=== PATIENT | female | born 1930 | race Caucasian/White ===

== ENCOUNTER 2017-08-03 16:19 | Outpatient (CLI) | payer MEDICARE, OTHER | END 2017-08-03 16:20 | disposition critical access hospital (66) | LOC: EMS 16:19 | PROVIDERS: ATTEND Surgery | DX: R51 Headache (principal); R42 Dizziness and giddiness; R11.10 Vomiting, unspecified | CPT/HCPCS: A0425; A0427 ==

== ENCOUNTER 2018-02-13 10:59 | Outpatient (CLI) | payer MEDICARE, OTHER ==
[2018-02-13 18:28] LABS: T4 (THYROXINE) 7.76 ug/dL (6.09-12.23)
[2018-02-13 18:30] LABS: ALBUMIN 4.2 g/dL (3.2-5.5); ALBUMIN/GLOBULIN RATIO 1.5 (1.0-2.2); BILIRUBIN,TOTAL 0.9 mg/dL (0.2-1.0); CALCIUM 9.1 mg/dL (8.5-10.3); CREATININE 0.7 mg/dL (0.4-1.0)
[2018-02-13 18:31] LABS: THYROID STIMULATING HORMONE 0.52 uIU/mL (0.34-5.60)
[2018-02-13 18:32] LABS: HB2 TOTAL 14.5 g/dL; HEMOGLOBIN A1C 0.46 g/dL; HEMOGLOBIN A1C % 5.1 % (4.6-6.2)
[2018-02-13 19:29] LABS: BASOPHILS % (AUTO) 0.4 %; EOSINOPHILS # (AUTO) 0.1 10^3/uL (0.0-0.7); EOSINOPHILS % (AUTO) 0.7 %; HGB - HEMOGLOBIN 12.8 g/dL (12.0-16.0); LYMPHOCYTES # (AUTO) 1.1 10^3/uL (1.5-3.5); LYMPHOCYTES % (AUTO) 13.6 %; MEAN CORPUSCULAR HGB CONC 32.1 g/dL (32.0-36.0); MEAN CORPUSCULAR VOLUME 93.4 fL (81.0-99.0); MONOCYTES % (AUTO) 12.9 %; NEUTROPHILS # (AUTO) 5.7 10^3/uL (1.5-6.6); NEUTROPHILS % (AUTO) 72.4 %; RED BLOOD COUNT 4.26 10^6/uL (4.20-5.40); RED CELL DISTRIBUTION WIDTH 19.7 % (12.0-15.0); WHITE BLOOD COUNT 7.8 x10^3/uL (4.8-10.8)
[2018-02-13 20:26] LABS: PLATELET ESTIMATE, MANUAL INCREASED (>450,000) (NORMAL); PLT - PLATELET COUNT 937 10^3/uL (130-450); RBC MORPHOLOGY (MULTIPLE) 1+ ANISOCYTOSIS (NORMAL)
== END 2018-02-13 11:00 | disposition home or self-care (01) ==
LOC: LAB.F 10:59
PROVIDERS: ATTEND Physician Assistant
DX: R79.89 Other specified abnormal findings of blood chemistry (principal); D69.6 Thrombocytopenia, unspecified; I10 Essential (primary) hypertension; Z13.1 Encounter for screening for diabetes mellitus
CPT/HCPCS: 36415; 80053; 83036; 84436; 84443; 85025

== ENCOUNTER 2018-04-11 14:49 | Outpatient (CLI) | payer MEDICARE, OTHER | END 2018-04-11 14:50 | disposition critical access hospital (66) | LOC: EMS 14:49 | PROVIDERS: ATTEND Surgery | DX: M25.552 Pain in left hip (principal); R20.0 Anesthesia of skin; W10.9XXA Fall (on) (from) unspecified stairs and steps, initial encounter; Y92.009 Unspecified place in unspecified non-institutional (private) residence as the place of occurrence of the external cause | CPT/HCPCS: A0425; A0429 ==

== ENCOUNTER 2018-04-11 15:25 | Inpatient (IN) | payer MEDICARE, OTHER ==
--- NOTE | 2018-04-11 15:48 | ED Physician Documentation ---
PD HPI LOWER EXT INJURY - Stated complaint Stated Complaint: GLF - Chief complaint Chief Complaint: Ext Problem - History obtained from History obtained from: Patient, Family - History of Present Illness PD HPI LOW EXT INJURY LOCATION: Left, Hip Type of injury: Fall (She twisted/tripped and fell to left side. [place] okay prior to that.) Where injury occurred: Home Timing - onset: Today (shortly [employer]) Timing - details: Abrupt onset, Still present (she fell and hurt left hip. Tried to get up and stand but was too painful.) Worsened by: Moving, Other (standing) Associated symptoms: No: Weakness, Numbness, Tingling Contributing factors: No: Anticoagulated Similar symptoms before: Has not had sx before Recently seen: Not recently seen Review of Systems Constitutional: denies: Fever, Chills Nose: denies: Rhinorrhea / runny nose, Congestion Throat: denies: Sore throat Cardiac: denies: Chest pain / pressure, Palpitations Respiratory: denies: Dyspnea, Cough GI: denies: Abdominal Pain, Nausea, Vomiting, Diarrhea, Bloody / black stool : denies: Dysuria, Frequency Skin: denies: Abrasion (s), Laceration (s) Neurologic: denies: Generalized weakness, Focal weakness, Numbness, Headache, Head injury PD PAST MEDICAL HISTORY - Past Medical History Past Medical History: Yes Cardiovascular: None Respiratory: None Neuro: Dementia Endocrine/Autoimmune: None Psych: Anxiety Musculoskeletal: Chronic back pain - Past Surgical History 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 - Present Medications Home Medications: Ambulatory Orders Medication Instructions Recorded Confirmed Sertraline [Zoloft] 50 mg ORAL DAILY 06/20/17 04/10/18 Calcium Citrate 1 tab PO DAILY 03/20/18 04/10/18 Ferrous Sulfate 1 tab PO DAILY 03/20/18 04/10/18 Ascorbic Acid [Vitamin C] 1,000 mg PO DAILY 04/10/18 04/10/18 Naproxen Sodium [Aleve] 1 tab PO DAILY 04/10/18 04/10/18 - Allergies Allergies/Adverse Reactions: Allergies Allergy/AdvReac Type Severity Reaction Status Date / Time No Known Drug Allergies Allergy Verified 02/18/14 18:41 - Living Situation Living Situation: reports: With family Living Arrangement: reports: At home - Social History Does the pt smoke?: No Smoking Status: Never smoker Does the pt drink ETOH?: Yes Does the pt have substance abuse?: No - Family History Family history: reports: Non contributory - Immunizations Immunizations are current?: Yes - POLST Patient has POLST: Yes PD ED PE NORMAL - Vitals Vital signs reviewed: Yes - General General: Alert and oriented X 3, No acute distress, Well developed/nourished - HEENT HEENT: Atraumatic, Pharynx benign - Neck Neck: Supple, no meningeal sign, No bony TTP, No adenopathy - Cardiac Cardiac: RRR, No murmur - Respiratory Respiratory: Clear bilaterally - Abdomen Abdomen: Soft, Non tender - Female Female : Deferred - Rectal Rectal: Deferred - Back Back: No CVA TTP, No spinal TTP - Derm Derm: Normal color, Warm and dry - Extremities Extremities: No deformity, No edema, No calf tenderness / cord, Other (left hip painful for rotational movement and impaction testing. Feels better with distraction. ) - Neuro Neuro: Alert and oriented X 3, No motor deficit, Normal speech Eye Opening: Spontaneous Motor: Obeys Commands Verbal: Oriented GCS Score: 15 - Psych Psych: Normal mood, Normal affect Results - Vitals Vitals: Vital Signs - 24 hr 04/11/18 15:30 Temperature 36.0 C L Heart Rate 85 Respiratory 16 Rate Blood Pressure 138/59 H O2 Saturation 100 Oxygen O2 Source Room air - Labs Labs: Laboratory Tests 04/11/18 04/11/18 16:40 16:40 WBC 11.3 H RBC 3.27 L Hgb 10.6 L Hct 32.0 L MCV 98.0 MCH 32.3 H MCHC 32.9 RDW 24.2 H Plt Count 166 MPV 7.8 L Neut # (Auto) Not Reportable Lymph # (Auto) Not Reportable [place] # (Auto) Not Reportable Eos # (Auto) Not Reportable Baso # (Auto) Not Reportable Absolute Nucleated RBC Not Reportable Total Counted 100 Band Neuts % (Manual) 3 Abnorm Lymph % (Manual) 0 Nucleated RBC % Not Reportable Neutrophils # (Manual) 9.7 H Lymphocytes # (Manual) 0.7 L Monocytes # (Manual) 0.9 Eosinophils # (Manual) 0.0 Basophils # (Manual) 0.0 Differential Comment MANUAL DIFFERENTIAL Manual Slide Review Indicated WBC Morphology NORMAL APPEARANCE Platelet Estimate NORMAL (130-450,000) Platelet Morphology NORMAL APPEARANCE RBC Morph Micro Appear 3+ ANISOCYTOSIS Sodium 138 Potassium 3.8 Chloride 102 Carbon Dioxide 27 Anion Gap 9.0 BUN 17 Creatinine 0.7 Estimated GFR (MDRD) 79 L Glucose 114 H Calcium 9.3 Total Bilirubin 0.8 AST 20 ALT 17 Alkaline Phosphatase 62 Total Protein 6.9 Albumin 4.1 Globulin 2.8 Albumin/Globulin Ratio 1.5 Lipase 49 - Rads (name of study) left hip Radiology: Prelim report reviewed, EMP read contemporaneously (Left intertrochanteric hip fracture with mild displacement and angulation.) PD MEDICAL DECISION MAKING - ED course Complexity details: reviewed results (Hip fracture. Her last meal was 9 AM this morning which is some little bits of fluid at noon. Evaluated the films and unfortunately he needed some hardware that was unavailable tonight and so was deferring surgery until the morning when they can get the appropriate appliance. Family is notified and updated on the course and plan of treatment.) , considered differential, d/w patient, d/w family, d/w datastage consultant (Dr. Barajas and also Dr. Wolfe) - Sepsis Event Vital Signs: Vital Signs - 24 hr 04/11/18 15:30 Temperature 36.0 C L Heart Rate 85 Respiratory 16 Rate Blood Pressure 138/59 H O2 Saturation 100 Oxygen O2 Source Room air Departure - Departure Disposition: 66 [facility] DC/Xfer Clinical Impression: Hip fracture Qualifiers: Encounter type: initial encounter Fracture type: closed Laterality: left Qualified Code(s): S72.002A - Fracture of unspecified part of neck of left femur , initial encounter for closed fracture Condition: Stable Record reviewed to determine appropriate education?: Yes Discharge Date/Time: 04/11/18 19:49
[2018-04-11 16:54] LABS: BASOPHILS % (AUTO) 0.3 %; HGB - HEMOGLOBIN 10.6 g/dL (12.0-16.0); LYMPHOCYTES % (AUTO) 4.5 %; MEAN CORPUSCULAR HEMOGLOBIN 32.3 pg (27.0-31.0); MEAN CORPUSCULAR HGB CONC 32.9 g/dL (32.0-36.0); MEAN PLATELET VOLUME 7.8 fL (7.9-10.8); MONOCYTES % (AUTO) 13.4 %; NEUTROPHILS % (AUTO) 81.8 %; PLT - PLATELET COUNT 166 10^3/uL (130-450); RED BLOOD COUNT 3.27 10^6/uL (4.20-5.40); RED CELL DISTRIBUTION WIDTH 24.2 % (12.0-15.0); WHITE BLOOD COUNT 11.3 x10^3/uL (4.8-10.8)
[2018-04-11 16:57] LABS: ABNORMAL LYMPHS % (MANUAL) 0 %
[2018-04-11 16:59] LABS: ALBUMIN 4.1 g/dL (3.2-5.5); ALBUMIN/GLOBULIN RATIO 1.5 (1.0-2.2); BILIRUBIN,TOTAL 0.8 mg/dL (0.2-1.0); CALCIUM 9.3 mg/dL (8.5-10.3); CREATININE 0.7 mg/dL (0.4-1.0); TOTAL PROTEIN 6.9 g/dL (6.7-8.2)
[2018-04-11 17:50] LABS: BAND NEUTROPHILS % (MANUAL) 3 %; LYMPHOCYTES # (MANUAL) 0.7 10^3/uL (1.5-3.5); LYMPHOCYTES % (MANUAL) 6 %; MONOCYTES # (MANUAL) 0.9 10^3/uL (0.0-1.0); NEUTROPHILS # (MANUAL) 9.7 10^3/uL (1.5-6.6); NEUTROPHILS % (MANUAL) 83 %; RBC MORPHOLOGY (MULTIPLE) 3+ ANISOCYTOSIS (NORMAL)
[2018-04-11 17:51] LABS: DIFFERENTIAL COMMENT MANUAL DIFFERENTIAL; PLATELET ESTIMATE, MANUAL NORMAL (130-450,000) (NORMAL); PLATELET MORPHOLOGY NORMAL APPEARANCE (NORMAL)
[2018-04-11] MEDS ORDERED: ACETAMINOPHEN 1,000 MG/100 ML 100 ML IV STA (18:20)
[2018-04-11] MEDS ORDERED: SODIUM CHLORIDE 0.9% 1,000 ML IV ONE (18:20)
[2018-04-11] MEDS ORDERED: ZOLPIDEM 5 MG TABLET PO PRN (18:31)
[2018-04-11] MEDS ORDERED: SODIUM CHLORIDE FLUSH 0.9% 10 ML SYRINGE IVP PRN (18:31)
[2018-04-11] MEDS ORDERED: ONDANSETRON 4 MG/2 ML VIAL IVP PRN (18:31)
[2018-04-11] MEDS ORDERED: ACETAMINOPHEN 325 MG TABLET PO PRN (18:31)
[2018-04-11] MEDS ORDERED: MORPHINE 2 MG/ML SYRINGE IVP PRN (18:31)
[2018-04-11] MEDS ORDERED: KETOROLAC 15 MG/ML VIAL IVP PRN (18:36)
--- NOTE | 2018-04-11 18:39 | HISTORY & PHYSICAL EXAMINATION ---
Chief Complaint - Chief Complaint Chief Complaint: left hip pain History of Present Illness - Admitted From Admitted From:: ER - History Obtained From History obtained from: pt and family - History of Present Illness HPI Comment/Other: is a 87-yrs-old female with a [facility] significance for anxiety, chronic back pain, who present ER complaint for left hip pain. Pt report she just missed a step when she walked at her home garage. Her left hip first hit the garage ground. Her witnessed the accident. She did not loss of consciousness when she had the fall. She immediately felt strong pain at her left hip. She could not move her left leg at all after this happened. pt denies chest pain, shortness of breath, abdominal pain, nausea, vomiting, headache, vision change, dysuria. She denies other injuries from this accidents. Xray reveals comminuted angulated complete left intertrochanteric fracture. Dr. Barajas was consulted at the time in ER. Lab test reveals pt had slight elevated WBC and mild anemia otherwise unremarkable. Pt is admitted for hip repair. 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 ), Father: Family History Comment/Other: pt is living with her in [facility]. Pt did not have her own children but had two adopted daughters. Living arrangement: At home Living Situation: With spouse/s.o. Social History Notes: pt denies cigarette smoking, alcohol and drug issue. - POLST Patient has POLST: Yes POLST Status: Full Code Meds/Allgy - Home Medications Home Medications: Ambulatory Orders Medication Instructions Recorded Confirmed Sertraline [Zoloft] 50 mg ORAL DAILY 06/20/17 04/10/18 Calcium Citrate 1 tab PO DAILY 03/20/18 04/10/18 Ferrous Sulfate 1 tab PO DAILY 03/20/18 04/10/18 Ascorbic Acid [Vitamin C] 1,000 mg PO DAILY 04/10/18 04/10/18 Naproxen Sodium [Aleve] 1 tab PO DAILY 04/10/18 04/10/18 - Allergies Allergies/Adverse Reactions: Allergies Allergy/AdvReac Type Severity Reaction Status Date / Time No Known Drug Allergies Allergy Verified 02/18/14 18:41 Review of Systems - Constitutional Constitutional: denies: Fatigue, Fever, Chills, Malaise, Weakness, Poor appetite , Diaphoresis, Night sweats - Eyes Eyes: denies: Pain, Irritation, Amaurosis, Blurred vision, Spots in vision, Field loss, Vision loss, Dipolpia - Ears, Nose & Throat Ears, Nose & Throat: denies: Ear pain, Hearing loss, Hearing aids, Tinnitus, Vertigo, Nasal pain, Nasal discharge, Nosebleeds, Nasal obstruction, Nasal congestion, Postnasal drainage, Sore throat, Mouth lesions, Bleeding gums - Cardiovascular Cariovascular: denies: Irregular heart rate, Palpitations, Chest pain, Edema, Lightheadedness, Syncope, Exertional dyspnea, Decr. exercise tolerance - Respiratory Respiratory: denies: Cough, Sputum production, Wheezing, Snoring, Hemoptysis, Orthopnea, SOB at rest, SOB with exertion - Gastrointestinal Gastrointestinal: denies: Abdominal pain, Abdominal distention, Constipation, Diarrhea, Change in bowel habits, Rectal bleeding, Black stools, Bloody stools, Nausea, Vomiting, Bile emesis, [place] blood emesis, Coffee grounds emesis, Reflux /heartburn - Genitourinary Genitourinary: denies: Dysuria, Frequency, Urgency, Hematuria, Incontinence, Flank pain, Nocturia - Musculoskeletal Musculoskeletal: reports: Joint pain (left hip pain, can not move left lower extremity), Other. denies: Muscle pain, Back pain, Muscle aches, Stiffness, Limited range of motion, Muscle weakness, Gout - Integumentary Integumentary: denies: Rash, Pruritis, Lesions, Dryness, Pigment changes - Neurological Neurological: denies: General weakness, Focal weakness, Headache, Dizziness, Numbness, Memory problems, Pre-existing deficit, Abnormal gait, Seizures, Incoordination, Slurred speech - Psychiatric Psychiatric: denies: Depression, Anxiety, Suicidal, Delusions, Hallucinations, Homicidal - Endocrine Endocrine: denies: Polyuria, Polydypsia, Polyphagia, Intolerance to cold, Intolerance to heat - Hematologic/Lymphatic Hematologic/Lymphatic: denies: Anemia, Bruising, Petechiae, Blood clots, Lymphadenopathy, Bleeding tendencies Exam - Vital Signs Reviewed Vital Signs: Yes Vital Signs: Vital Signs x48h Temp Pulse Resp BP Pulse Ox 04/11/18 15:30 36.0 C L 85 16 138/59 H 100 - Physical Exam General Appearance: positive: No acute distress, Alert. negative: Lethargic Eyes Bilateral: positive: Normal inspection, PERRL, No lid inflammation, Conjunctivae nml ENT: positive: ENT inspection nml, Pharynx nml, No signs of dehydration. negative: Purulent nasal drainage, Pharyngeal erythema, Oral lesions Neck: positive: Nml inspection, Thyroid nml, No JVD, Trachea midline. negative : Thyromegaly, Lymphadenopathy (R), Lymphadenopathy (L), Stiff neck, Carotid bruit, Swelling/bruising, Tracheal deviation Respiratory: positive: Chest non-tender, No respiratory distress, Breath sounds nml. negative: Wheezes, Rales, Rhonchi Cardiovascular: positive: Regular rate & rhythm, No murmur, No gallop. negative : Irregularly irregular, Extrasystoles, Tachycardia, Bradycardia, JVD present, Systolic murmur, Diastolic murmur Peripheral Pulses: positive: 2+ Abdomen: positive: Non-tender, No organomegaly, Nml bowel sounds, No distention. negative: Tenderness, Guarding, Rebound Back: positive: Nml inspection. negative: CVA tenderness (R), CVA tenderness (L ) Skin: positive: Color nml, No rash, Warm, Dry. negative: Cyanosis, Diaphoresis , Pallor Extremities: positive: Nml appearance. negative: Calf tenderness, Joint swelling, Gayatri's sign/cords Neurologic/Psychiatric: positive: Oriented x3, Sensation nml, Mood/affect nml. negative: Weakness, Sensory loss, Facial droop, Slurred/abnml speech, Depressed mood/affect Conclusion/Plan - Problem List (1) Hip fracture Conclusion/Plan: Xray reveal pt had lift hip fracture, pt is with pain. consult with orthopedics NPO mednight IVF pain control It seems very low risk 0.4% in revised cardiac risk index for operation Qualifiers: Encounter type: initial encounter Fracture type: closed Laterality: left Qualified Code(s): S72.002A - Fracture of unspecified part of neck of left femur, initial encounter for closed fracture (2) Anxiety Conclusion/Plan: stable, resume home Zoloft (3) Chronic back pain Conclusion/Plan: pain control, on Morphine and Toradol, PRN (4) DVT prophylaxis Conclusion/Plan: SCD and Lovenox (5) Full code status Conclusion/Plan: pt request full code - Lab Results Fish Bones: 04/12/18 05:15 04/12/18 05:15 Core Measures - Anticipated LOS I expect patient to be DC'd or transferred within 96 hours.: Yes - DVT/VTE - Prophylaxis VTE/DVT Device ordered at admit?: Yes VTE/DVT Prophylaxis med ordered at admit?: Yes
--- NOTE | 2018-04-11 18:53 | XRAY Report ---
Procedure Date: 04/11/2018 Accession Number: [id number] / [id number] Procedure: XR - Hip w/Pelvis 2-3V LT CPT Code: FULL RESULT: EXAM: LEFT HIP AND PELVIS RADIOGRAPHY EXAM DATE: 04/11/2018 05:01 PM. HISTORY: Pain COMPARISONS: None. TECHNIQUE: 1 view of the pelvis and one view of the left hip. FINDINGS: Bones: Comminuted angulated complete left intertrochanteric fracture. Joints: No dislocations Soft Tissues: Unremarkable IMPRESSION: Comminuted angulated complete left intertrochanteric fracture. RADIA
[2018-04-11] MEDS: SODIUM CHLORIDE 0.9% 1,000 ML IV SCH (20:25)
[2018-04-11 20:49] LABS: BILIRUBIN,URINE NEGATIVE (NEGATIVE); GLUCOSE, URINE (UA) NEGATIVE (NEGATIVE); KETONES,URINE (UA) 15 mg/dL (NEGATIVE); LEUKOCYTE ESTERASE, URINE NEGATIVE (NEGATIVE); NITRITE,URINE NEGATIVE (NEGATIVE); OCCULT BLOOD,URINE TRACE-INTA (NEGATIVE); PROTEIN,URINE NEGATIVE (NEGATIVE); UROBILINOGEN,URINE 0.2 (NORMAL) E.U./dL (NORMAL)
[2018-04-11 21:18] LABS: BACTERIA,URINE None Seen /HPF (None Seen); CLARITY,URINE CLEAR (CLEAR); MUCUS,URINE Moderate Strands; RBC,URINE 0-5 /HPF (0-5); SQUAMOUS EPITHELIAL CELL,UR NONE SEEN (<= Few)
[2018-04-12] MEDS: SODIUM CHLORIDE 0.9% 1,000 ML IV SCH ×2 (03:38→19:36)
[2018-04-12] MEDS: SODIUM CHLORIDE FLUSH 0.9% 10 ML SYRINGE IVP SCH ×3 (04:53→17:41)
[2018-04-12 05:59] LABS: BASOPHILS % (AUTO) 0.1 %; EOSINOPHILS % (AUTO) 0.1 %; HGB - HEMOGLOBIN 8.7 g/dL (12.0-16.0); LYMPHOCYTES # (AUTO) 0.9 10^3/uL (1.5-3.5); LYMPHOCYTES % (AUTO) 12.6 %; MEAN CORPUSCULAR HEMOGLOBIN 32.6 pg (27.0-31.0); MEAN CORPUSCULAR HGB CONC 33.3 g/dL (32.0-36.0); MONOCYTES # (AUTO) 1.7 10^3/uL (0.0-1.0); MONOCYTES % (AUTO) 25.4 %; NEUTROPHILS # (AUTO) 4.2 10^3/uL (1.5-6.6); NEUTROPHILS % (AUTO) 61.8 %; PLT - PLATELET COUNT 141 10^3/uL (130-450); RED BLOOD COUNT 2.66 10^6/uL (4.20-5.40); RED CELL DISTRIBUTION WIDTH 24.3 % (12.0-15.0); WHITE BLOOD COUNT 6.9 x10^3/uL (4.8-10.8)
[2018-04-12 06:03] LABS: ALBUMIN/GLOBULIN RATIO 1.3 (1.0-2.2); BILIRUBIN,TOTAL 0.7 mg/dL (0.2-1.0); CALCIUM 8.3 mg/dL (8.5-10.3); CREATININE 0.5 mg/dL (0.4-1.0); MAGNESIUM 1.9 mg/dL (1.7-2.8); TOTAL PROTEIN 5.3 g/dL (6.7-8.2)
[2018-04-12 06:25] LABS: PLATELET ESTIMATE, MANUAL NORMAL (130-450,000) (NORMAL)
[2018-04-12] MEDS: ENOXAPARIN 40 MG/0.4 ML SYRINGE SUBQ SCH (08:23)
[2018-04-12] MEDS: POLYETHYLENE GLYCOL 3350 17 GM PACKET PO SCH (08:23)
[2018-04-12] MEDS: FAMOTIDINE 20 MG TABLET PO SCH (08:29)
[2018-04-12 08:49] LABS: MEAN RETIC VALUE 123.7; RED BLOOD COUNT 2.63 10^6/uL (4.20-5.40)
[2018-04-12 09:08] LABS: INR 1.5 (0.8-1.2); PT - PROTHROMBIN TIME 16.5 secs (9.9-12.6)
[2018-04-12 09:13] LABS: % IRON SATURATION 22 % (20-50); IRON 41 ug/dL (28-170); TOTAL IRON BINDING CAPACITY 186 ug/dL (250-450); TRANSFERRIN 133 mg/dL (192-382)
[2018-04-12 09:19] LABS: FERRITIN 280.8 ng/mL (11.0-306.8)
--- NOTE | 2018-04-12 10:54 | PROVIDER PROGRESS NOTE ---
Subjective - Prog Note Date Prog Note Date: 04/12/18 Prog Note Time: 10:52 - Subjective Pt reports feeling: Worse (Patient STJamalH a GLF at home yesterday, injuring her left hip. XR in ER showed a left IT hip fracture. To OR this AM for surgical fixation of fracture. No other injury with fall.) Objective - Vital Signs/Intake & Output Vital Signs: Vital Signs x48h Temp Pulse Resp BP Pulse Ox 04/12/18 07:45 36.9 C 89 16 129/47 L 93 Intake & Output: Intake & Output 04/09/18 04/10/18 04/11/18 04/12/18 23:59 23:59 23:59 23:59 Intake Total 150 2000 Output Total 150 275 Balance 0 1725 - Lab Results Fish Bones: 04/12/18 05:15 04/12/18 05:15 Other Labs: Lab Results x24hrs 04/12/18 04/12/18 04/12/18 Range/Units 08:56 05:15 05:15 WBC (4.8-10.8) x10^3/uL RBC (4.20-5.40) 10^6/uL Hgb (12.0-16.0) g/dL Hct (37.0-47.0) % MCV (81.0-99.0) fL MCH (27.0-31.0) pg MCHC (32.0-36.0) g/dL RDW (12.0-15.0) % Plt Count (130-450) 10^3/uL MPV (7.9-10.8) fL Reticulocyte % (Auto) (0.5-2.3) % Neut # (Auto) (1.5-6.6) 10^3/uL Lymph # (Auto) (1.5-3.5) 10^3/uL Luce # (Auto) (0.0-1.0) 10^3/uL Eos # (Auto) (0.0-0.7) 10^3/uL Baso # (Auto) (0.0-0.1) 10^3/uL Absolute Nucleated RBC x10^3/uL Nucleated RBC % /100WBC Manual Slide Review Platelet Estimate (NORMAL) RBC Morph Micro Appear (NORMAL) Absolute Retic (0.020-0.110) 10^6/uL PT 16.5 H (9.9-12.6) secs INR 1.5 H (0.8-1.2) Sodium (135-145) mmol/L Potassium (3.5-5.0) mmol/L Chloride (101-111) mmol/L Carbon Dioxide (21-32) mmol/L Anion Gap (6-13) BUN (6-20) mg/dL Creatinine (0.4-1.0) mg/dL Estimated GFR (MDRD) (>89) Glucose (70-100) mg/dL Calcium (8.5-10.3) mg/dL Magnesium (1.7-2.8) mg/dL Iron (28-170) ug/dL TIBC (250-450) ug/dL % Saturation (20-50) % Transferrin (192-382) mg/dL Ferritin 280.8 (11.0-306.8) ng/mL Total Bilirubin (0.2-1.0) mg/dL AST (10-42) IU/L ALT (10-60) IU/L Alkaline Phosphatase (42-121) IU/L Lactate Dehydrogenase 189 (91-225) IU/L Total Protein (6.7-8.2) g/dL Albumin (3.2-5.5) g/dL Globulin (2.1-4.2) g/dL Albumin/Globulin Ratio (1.0-2.2) Vitamin B12 562 (180-914) pg/mL Urine Color Urine Clarity (CLEAR) Urine pH (5.0-7.5) PH Ur Specific [place] (1.002-1.030) Urine Protein (NEGATIVE) mg/dL Urine Glucose (UA) (NEGATIVE) mg/dL Urine Ketones (NEGATIVE) mg/dL Urine Occult Blood (NEGATIVE) Urine Nitrite (NEGATIVE) Urine Bilirubin (NEGATIVE) Urine Urobilinogen (NORMAL) E.U./dL Ur Leukocyte Esterase (NEGATIVE) Urine RBC (0-5) /HPF Urine WBC (0-5) /HPF Ur Squamous Epith Cells (<= Few) Urine Bacteria (None Seen) /HPF Urine Mucus Urine Culture Comments 04/12/18 04/12/18 04/12/18 Range/Units 05:15 05:15 05:15 WBC (4.8-10.8) x10^3/uL RBC 2.63 L (4.20-5.40) 10^6/uL Hgb (12.0-16.0) g/dL Hct (37.0-47.0) % MCV (81.0-99.0) fL MCH (27.0-31.0) pg MCHC (32.0-36.0) g/dL RDW (12.0-15.0) % Plt Count (130-450) 10^3/uL MPV (7.9-10.8) fL Reticulocyte % (Auto) 2.43 H (0.5-2.3) % Neut # (Auto) (1.5-6.6) 10^3/uL Lymph # (Auto) (1.5-3.5) 10^3/uL [place] # (Auto) (0.0-1.0) 10^3/uL Eos # (Auto) (0.0-0.7) 10^3/uL Baso # (Auto) (0.0-0.1) 10^3/uL Absolute Nucleated RBC x10^3/uL Nucleated RBC % /100WBC Manual Slide Review Platelet Estimate (NORMAL) RBC Morph Micro Appear (NORMAL) Absolute Retic 0.064 (0.020-0.110) 10^6/uL PT (9.9-12.6) secs INR (0.8-1.2) Sodium 140 (135-145) mmol/L Potassium 3.6 (3.5-5.0) mmol/L Chloride 109 (101-111) mmol/L Carbon Dioxide 25 (21-32) mmol/L Anion Gap 6.0 (6-13) BUN 15 (6-20) mg/dL Creatinine 0.5 (0.4-1.0) mg/dL Estimated GFR (MDRD) 117 (>89) Glucose 109 H (70-100) mg/dL Calcium 8.3 L (8.5-10.3) mg/dL Magnesium 1.9 (1.7-2.8) mg/dL Iron 41 (28-170) ug/dL TIBC 186 L (250-450) ug/dL % Saturation 22 (20-50) % Transferrin 133 L (192-382) mg/dL Ferritin (11.0-306.8) ng/mL Total Bilirubin 0.7 (0.2-1.0) mg/dL AST 19 (10-42) IU/L ALT 14 (10-60) IU/L Alkaline Phosphatase 51 (42-121) IU/L Lactate Dehydrogenase (91-225) IU/L Total Protein 5.3 L (6.7-8.2) g/dL Albumin 3.0 L (3.2-5.5) g/dL Globulin 2.3 (2.1-4.2) g/dL Albumin/Globulin Ratio 1.3 (1.0-2.2) Vitamin B12 (180-914) pg/mL Urine Color Urine Clarity (CLEAR) Urine pH (5.0-7.5) PH Ur Specific [place] (1.002-1.030) Urine Protein (NEGATIVE) mg/dL Urine Glucose (UA) (NEGATIVE) mg/dL Urine Ketones (NEGATIVE) mg/dL Urine Occult Blood (NEGATIVE) Urine Nitrite (NEGATIVE) Urine Bilirubin (NEGATIVE) Urine Urobilinogen (NORMAL) E.U./dL Ur Leukocyte Esterase (NEGATIVE) Urine RBC (0-5) /HPF Urine WBC (0-5) /HPF Ur Squamous Epith Cells (<= Few) Urine Bacteria (None Seen) /HPF Urine Mucus Urine Culture Comments 04/12/18 04/11/18 Range/Units 05:15 20:38 WBC 6.9 (4.8-10.8) x10^3/uL RBC 2.66 L (4.20-5.40) 10^6/uL Hgb 8.7 L (12.0-16.0) g/dL Hct 26.0 L (37.0-47.0) % MCV 98.0 (81.0-99.0) fL MCH 32.6 H (27.0-31.0) pg MCHC 33.3 (32.0-36.0) g/dL RDW 24.3 H (12.0-15.0) % Plt Count 141 (130-450) 10^3/uL MPV 8.0 (7.9-10.8) fL Reticulocyte % (Auto) (0.5-2.3) % Neut # (Auto) 4.2 (1.5-6.6) 10^3/uL Lymph # (Auto) 0.9 L (1.5-3.5) 10^3/uL [place]uce # (Auto) 1.7 H (0.0-1.0) 10^3/uL Eos # (Auto) 0.0 (0.0-0.7) 10^3/uL Baso # (Auto) 0.0 (0.0-0.1) 10^3/uL Absolute Nucleated RBC 0.00 x10^3/uL Nucleated RBC % 0.0 /100WBC Manual Slide Review Indicated Platelet Estimate NORMAL (130-450,000) (NORMAL) RBC Morph Micro Appear 1+ HYPOCHROMASIA (NORMAL) Absolute Retic (0.020-0.110) 10^6/uL PT (9.9-12.6) secs INR (0.8-1.2) Sodium (135-145) mmol/L Potassium (3.5-5.0) mmol/L Chloride (101-111) mmol/L Carbon Dioxide (21-32) mmol/L Anion Gap (6-13) BUN (6-20) mg/dL Creatinine (0.4-1.0) mg/dL Estimated GFR (MDRD) (>89) Glucose (70-100) mg/dL Calcium (8.5-10.3) mg/dL Magnesium (1.7-2.8) mg/dL Iron (28-170) ug/dL TIBC (250-450) ug/dL % Saturation (20-50) % Transferrin (192-382) mg/dL Ferritin (11.0-306.8) ng/mL Total Bilirubin (0.2-1.0) mg/dL AST (10-42) IU/L ALT (10-60) IU/L Alkaline Phosphatase (42-121) IU/L Lactate Dehydrogenase (91-225) IU/L Total Protein (6.7-8.2) g/dL Albumin (3.2-5.5) g/dL Globulin (2.1-4.2) g/dL Albumin/Globulin Ratio (1.0-2.2) Vitamin B12 (180-914) pg/mL Urine Color YELLOW Urine Clarity CLEAR (CLEAR) Urine pH 6.0 (5.0-7.5) PH Ur Specific [place] 1.020 (1.002-1.030) Urine Protein NEGATIVE (NEGATIVE) mg/dL Urine Glucose (UA) NEGATIVE (NEGATIVE) mg/dL Urine Ketones 15 H (NEGATIVE) mg/dL Urine Occult Blood TRACE-INTA (NEGATIVE) Urine Nitrite NEGATIVE (NEGATIVE) Urine Bilirubin NEGATIVE (NEGATIVE) Urine Urobilinogen 0.2 (NORMAL) (NORMAL) E.U./dL Ur Leukocyte Esterase NEGATIVE (NEGATIVE) Urine RBC 0-5 (0-5) /HPF Urine WBC 0-3 (0-5) /HPF Ur Squamous Epith Cells NONE SEEN (<= Few) Urine Bacteria None Seen (None Seen) /HPF Urine Mucus Moderate Strands Urine Culture Comments NOT INDICATED - Diagnostic Imaging Diagnostic Imaging Comments: XR show left IT hip fracture - Other Results/Comments Other Results/Comments: EXAM: Left hip: shortened and ext rotated. Painful hip motion. Moves toes well. Sensation intact. Good cap filling Assessment/Plan - Problem List (1) Hip fracture Impression: Closed left IT hip fracture PLAN: To OR this AM for short interTan nailing of fracture. Risk/benefit explained to patient and her family. They are in favor of surgery. Leg marked. Consent signed. Qualifiers: Encounter type: initial encounter Fracture type: closed Laterality: left Qualified Code(s): S72.002A - Fracture of unspecified part of neck of left femur, initial encounter for closed fracture
[2018-04-12] MEDS ORDERED: ceFAZolin 2 GM/50 ML 2 GM/50 ML BAG IV SCH (11:00)
--- NOTE | 2018-04-12 11:45 | CONSULTATION NOTE ---
DATE OF SERVICE: 04/12/2018 Physician: Logan Barajas MD REFERRING PHYSICIAN: Patrick Arango MD of the Emergency Department. CHIEF COMPLAINT: "My left hip hurts." HISTORY OF PRESENT ILLNESS: The patient is an 87-year-old woman who apparently had a misstep walking down steps to her basement yesterday, when she fell onto her left side. She noted immediate pain and deformity of her left hip, was unable to stand and bear due to pain. She was taken by ambulance to the Emergency Room here at [facility]. Evaluation in the Emergency Room revealed a left intertrochanteric hip fracture, left side. There were no associated other injuries such as loss of conscious, nausea, vomiting or distal weakness or numbness noted. No prior hip fracture. The patient apparently last had breakfast on the morning of her accident. Was admitted to the medical service for preoperative evaluation prior to her surgery. PHYSICAL EXAMINATION GENERAL: Showed an elderly woman in mild amount of distress, lying in her bed. EXTREMITIES: Left hip exam showed tenderness on the lateral aspect of her left hip. Painful left hip range of motion noted. The patient moves her toes well. No distal weakness or numbness noted in lower extremity. Good capillary filling of the digits noted. X-rays that were taken of the left hip show a left intertrochanteric hip fracture. ASSESSMENT: Closed left intertrochanteric hip fracture. PLAN: The patient has been cleared medically for surgical intervention. Discussed at length with the patient and her family, her diagnosis and treatment options. They have agreed to go ahead with surgical fixation of her fracture using a short Intertan nail, as described to them. The risks and benefits of surgery were explained, including anesthesia risks, infection, blood loss, nerve damage, malunion, nonunion, deep venous thrombosis, etc. They still wish to proceed with surgery later this morning. TD: 04/12/2018 10:57
[2018-04-12] MEDS ORDERED: LIDOCAINE-MPF 1% 30 ML VIAL ONE (13:24)
--- NOTE | 2018-04-12 13:55 | PROVIDER PROGRESS NOTE ---
Subjective - Prog Note Date Prog Note Date: 04/12/18 - Subjective Pt reports feeling: No change Subjective: pt still report pain when she move her leg. plan pt have hip repair today morning with orthopedics. Current Medications - Current Medications Current Medications: Active Medications Acetaminophen (Tylenol) 650 mg PO Q4HR PRN PRN Reason: Pain 1 to 4 Calcium Citrate () 250 mg PO DAILY [facility] Enoxaparin Sodium (Lovenox) 40 mg SUBQ DAILY [facility] Last Admin: 04/12/18 08:23 Dose: Not Given Famotidine (Pepcid) 20 mg PO DAILY [facility] Last Admin: 04/12/18 08:29 Dose: 20 mg Ferrous Sulfate (Feosol) 325 mg PO DAILYWM [facility] Sodium Chloride (Normal Saline 0.9%) 1,000 mls @ 100 mls/hr IV .Q10H [facility] Last Infusion: 04/12/18 13:38 Dose: Infused Cefazolin Sodium/Dextrose (Ancef 2 Gm/50 Ml) 2 gm in 50 mls @ 100 mls/hr IV ONCE [facility] Stop: 04/12/18 17:00 Ketorolac Tromethamine (Toradol Inj (15mg)) 15 mg IVP Q6HR PRN PRN Reason: PAIN Stop: 04/16/18 18:35 Morphine Sulfate (Morphine) 2 mg IVP Q2H PRN PRN Reason: Pain 8 to 10 Ondansetron HCl (Zofran Inj) 4 mg IVP Q6HR PRN PRN Reason: Nausea / Vomiting Polyethylene Glycol (Miralax) 17 gm PO DAILY [facility] Last Admin: 04/12/18 08:23 Dose: Not Given Sertraline HCl (Zoloft) 50 mg PO DAILY [facility] Sodium Chloride (Normal Saline Flush 0.9%) 10 ml IVP PRN PRN PRN Reason: NEEDED PER PROVIDER ORDERS Sodium Chloride (Normal Saline Flush 0.9%) 10 ml IVP 0100,0900,1700 [facility] Last Admin: 04/12/18 08:23 Dose: Not Given Zolpidem Tartrate (Ambien) 5 mg PO QPM PRN PRN Reason: Insomnia Last Admin: 04/12/18 00:35 Dose: 5 mg Sertraline [Zoloft] 50 mg ORAL DAILY 06/20/17 Calcium Citrate 1 tab PO DAILY 03/20/18 Ferrous Sulfate 1 tab PO DAILY 03/20/18 Ascorbic Acid [Vitamin C] 1,000 mg PO DAILY 04/10/18 Naproxen Sodium [Aleve] 1 tab PO DAILY 04/10/18 Objective - Vital Signs/Intake & Output Reviewed Vital Signs: Yes Vital Signs: Vital Signs x48h Temp Pulse Resp BP Pulse Ox 04/12/18 07:45 36.9 C 89 16 129/47 L 93 Intake & Output: Intake & Output 04/09/18 04/10/18 04/11/18 04/12/18 23:59 23:59 23:59 23:59 Intake Total 150 3000 Output Total 150 275 Balance 0 2725 - Objective General Appearance: positive: No acute distress, Alert. negative: Lethargic Eyes Bilateral: positive: Normal inspection, PERRL, No lid inflammation, Conjunctivae nml ENT: positive: ENT inspection nml, Pharynx nml, No signs of dehydration. negative: Purulent nasal drainage, Pharyngeal erythema, Oral lesions Neck: positive: Nml inspection, Thyroid nml, No JVD, Trachea midline. negative : Thyromegaly, Lymphadenopathy (R), Lymphadenopathy (L), Stiff neck, Swelling/ bruising, Tracheal deviation Respiratory: positive: Chest non-tender, No respiratory distress, Breath sounds nml. negative: Wheezes, Rales, Rhonchi Cardiovascular: positive: Regular rate & rhythm, No murmur, No gallop. negative : Irregularly irregular, Extrasystoles, Tachycardia, Bradycardia, JVD present, Systolic murmur, Diastolic murmur Peripheral Pulses: 2+ Radial (R), 2+ Radial (L), 2+ Dorsalis pedis (R), 2+ Dorsalis pedis (L) Abdomen: positive: Non-tender, No organomegaly, Nml bowel sounds, No distention. negative: Tenderness, Guarding, Rebound Back: positive: Nml inspection. negative: CVA tenderness (R), CVA tenderness (L ) Skin: positive: Color nml, No rash, Warm, Dry. negative: Cyanosis, Diaphoresis , Pallor Extremities: positive: Non-tender. negative: Calf tenderness, Joint swelling, Gayatri's sign/cords Neurologic/Psychiatric: positive: Oriented x3, Sensation nml, Mood/affect nml. negative: Weakness, Sensory loss, Facial droop, Slurred/abnml speech, Depressed mood/affect - Lab Results Fish Bones: 04/12/18 05:15 04/12/18 05:15 Other Labs: Lab Results x24hrs 04/12/18 04/12/18 04/12/18 Range/Units 08:56 05:15 05:15 WBC (4.8-10.8) x10^3/uL RBC (4.20-5.40) 10^6/uL Hgb (12.0-16.0) g/dL Hct (37.0-47.0) % MCV (81.0-99.0) fL MCH (27.0-31.0) pg MCHC (32.0-36.0) g/dL RDW (12.0-15.0) % Plt Count (130-450) 10^3/uL MPV (7.9-10.8) fL Reticulocyte % (Auto) (0.5-2.3) % Neut # (Auto) (1.5-6.6) 10^3/uL Lymph # (Auto) (1.5-3.5) 10^3/uL [place] # (Auto) (0.0-1.0) 10^3/uL Eos # (Auto) (0.0-0.7) 10^3/uL Baso # (Auto) (0.0-0.1) 10^3/uL Absolute Nucleated RBC x10^3/uL Nucleated RBC % /100WBC Manual Slide Review Platelet Estimate (NORMAL) RBC Morph Micro Appear (NORMAL) Absolute Retic (0.020-0.110) 10^6/uL PT 16.5 H (9.9-12.6) secs INR 1.5 H (0.8-1.2) Sodium (135-145) mmol/L Potassium (3.5-5.0) mmol/L Chloride (101-111) mmol/L Carbon Dioxide (21-32) mmol/L Anion Gap (6-13) BUN (6-20) mg/dL Creatinine (0.4-1.0) mg/dL Estimated GFR (MDRD) (>89) Glucose (70-100) mg/dL Calcium (8.5-10.3) mg/dL Magnesium (1.7-2.8) mg/dL Iron (28-170) ug/dL TIBC (250-450) ug/dL % Saturation (20-50) % Transferrin (192-382) mg/dL Ferritin 280.8 (11.0-306.8) ng/mL Total Bilirubin (0.2-1.0) mg/dL AST (10-42) IU/L ALT (10-60) IU/L Alkaline Phosphatase (42-121) IU/L Lactate Dehydrogenase 189 (91-225) IU/L Total Protein (6.7-8.2) g/dL Albumin (3.2-5.5) g/dL Globulin (2.1-4.2) g/dL Albumin/Globulin Ratio (1.0-2.2) Vitamin B12 562 (180-914) pg/mL Urine Color Urine Clarity (CLEAR) Urine pH (5.0-7.5) PH Ur Specific Lavina (1.002-1.030) Urine Protein (NEGATIVE) mg/dL Urine Glucose (UA) (NEGATIVE) mg/dL Urine Ketones (NEGATIVE) mg/dL Urine Occult Blood (NEGATIVE) Urine Nitrite (NEGATIVE) Urine Bilirubin (NEGATIVE) Urine Urobilinogen (NORMAL) E.U./dL Ur Leukocyte Esterase (NEGATIVE) Urine RBC (0-5) /HPF Urine WBC (0-5) /HPF Ur Squamous Epith Cells (<= Few) Urine Bacteria (None Seen) /HPF Urine Mucus Urine Culture Comments 04/12/18 04/12/18 04/12/18 Range/Units 05:15 05:15 05:15 WBC (4.8-10.8) x10^3/uL RBC 2.63 L (4.20-5.40) 10^6/uL Hgb (12.0-16.0) g/dL Hct (37.0-47.0) % MCV (81.0-99.0) fL MCH (27.0-31.0) pg MCHC (32.0-36.0) g/dL RDW (12.0-15.0) % Plt Count (130-450) 10^3/uL MPV (7.9-10.8) fL Reticulocyte % (Auto) 2.43 H (0.5-2.3) % Neut # (Auto) (1.5-6.6) 10^3/uL Lymph # (Auto) (1.5-3.5) 10^3/uL [place] # (Auto) (0.0-1.0) 10^3/uL Eos # (Auto) (0.0-0.7) 10^3/uL Baso # (Auto) (0.0-0.1) 10^3/uL Absolute Nucleated RBC x10^3/uL Nucleated RBC % /100WBC Manual Slide Review Platelet Estimate (NORMAL) RBC Morph Micro Appear (NORMAL) Absolute Retic 0.064 (0.020-0.110) 10^6/uL PT (9.9-12.6) secs INR (0.8-1.2) Sodium 140 (135-145) mmol/L Potassium 3.6 (3.5-5.0) mmol/L Chloride 109 (101-111) mmol/L Carbon Dioxide 25 (21-32) mmol/L Anion Gap 6.0 (6-13) BUN 15 (6-20) mg/dL Creatinine 0.5 (0.4-1.0) mg/dL Estimated GFR (MDRD) 117 (>89) Glucose 109 H (70-100) mg/dL Calcium 8.3 L (8.5-10.3) mg/dL Magnesium 1.9 (1.7-2.8) mg/dL Iron 41 (28-170) ug/dL TIBC 186 L (250-450) ug/dL % Saturation 22 (20-50) % Transferrin 133 L (192-382) mg/dL Ferritin (11.0-306.8) ng/mL Total Bilirubin 0.7 (0.2-1.0) mg/dL AST 19 (10-42) IU/L ALT 14 (10-60) IU/L Alkaline Phosphatase 51 (42-121) IU/L Lactate Dehydrogenase (91-225) IU/L Total Protein 5.3 L (6.7-8.2) g/dL Albumin 3.0 L (3.2-5.5) g/dL Globulin 2.3 (2.1-4.2) g/dL Albumin/Globulin Ratio 1.3 (1.0-2.2) Vitamin B12 (180-914) pg/mL Urine Color Urine Clarity (CLEAR) Urine pH (5.0-7.5) PH Ur Specific Lavina (1.002-1.030) Urine Protein (NEGATIVE) mg/dL Urine Glucose (UA) (NEGATIVE) mg/dL Urine Ketones (NEGATIVE) mg/dL Urine Occult Blood (NEGATIVE) Urine Nitrite (NEGATIVE) Urine Bilirubin (NEGATIVE) Urine Urobilinogen (NORMAL) E.U./dL Ur Leukocyte Esterase (NEGATIVE) Urine RBC (0-5) /HPF Urine WBC (0-5) /HPF Ur Squamous Epith Cells (<= Few) Urine Bacteria (None Seen) /HPF Urine Mucus Urine Culture Comments 04/12/18 04/11/18 Range/Units 05:15 20:38 WBC 6.9 (4.8-10.8) x10^3/uL RBC 2.66 L (4.20-5.40) 10^6/uL Hgb 8.7 L (12.0-16.0) g/dL Hct 26.0 L (37.0-47.0) % MCV 98.0 (81.0-99.0) fL MCH 32.6 H (27.0-31.0) pg MCHC 33.3 (32.0-36.0) g/dL RDW 24.3 H (12.0-15.0) % Plt Count 141 (130-450) 10^3/uL MPV 8.0 (7.9-10.8) fL Reticulocyte % (Auto) (0.5-2.3) % Neut # (Auto) 4.2 (1.5-6.6) 10^3/uL Lymph # (Auto) 0.9 L (1.5-3.5) 10^3/uL [place] # (Auto) 1.7 H (0.0-1.0) 10^3/uL Eos # (Auto) 0.0 (0.0-0.7) 10^3/uL Baso # (Auto) 0.0 (0.0-0.1) 10^3/uL Absolute Nucleated RBC 0.00 x10^3/uL Nucleated RBC % 0.0 /100WBC Manual Slide Review Indicated Platelet Estimate NORMAL (130-450,000) (NORMAL) RBC Morph Micro Appear 1+ HYPOCHROMASIA (NORMAL) Absolute Retic (0.020-0.110) 10^6/uL PT (9.9-12.6) secs INR (0.8-1.2) Sodium (135-145) mmol/L Potassium (3.5-5.0) mmol/L Chloride (101-111) mmol/L Carbon Dioxide (21-32) mmol/L Anion Gap (6-13) BUN (6-20) mg/dL Creatinine (0.4-1.0) mg/dL Estimated GFR (MDRD) (>89) Glucose (70-100) mg/dL Calcium (8.5-10.3) mg/dL Magnesium (1.7-2.8) mg/dL Iron (28-170) ug/dL TIBC (250-450) ug/dL % Saturation (20-50) % Transferrin (192-382) mg/dL Ferritin (11.0-306.8) ng/mL Total Bilirubin (0.2-1.0) mg/dL AST (10-42) IU/L ALT (10-60) IU/L Alkaline Phosphatase (42-121) IU/L Lactate Dehydrogenase (91-225) IU/L Total Protein (6.7-8.2) g/dL Albumin (3.2-5.5) g/dL Globulin (2.1-4.2) g/dL Albumin/Globulin Ratio (1.0-2.2) Vitamin B12 (180-914) pg/mL Urine Color YELLOW Urine Clarity CLEAR (CLEAR) Urine pH 6.0 (5.0-7.5) PH Ur Specific Lavina 1.020 (1.002-1.030) Urine Protein NEGATIVE (NEGATIVE) mg/dL Urine Glucose (UA) NEGATIVE (NEGATIVE) mg/dL Urine Ketones 15 H (NEGATIVE) mg/dL Urine Occult Blood TRACE-INTA (NEGATIVE) Urine Nitrite NEGATIVE (NEGATIVE) Urine Bilirubin NEGATIVE (NEGATIVE) Urine Urobilinogen 0.2 (NORMAL) (NORMAL) E.U./dL Ur Leukocyte Esterase NEGATIVE (NEGATIVE) Urine RBC 0-5 (0-5) /HPF Urine WBC 0-3 (0-5) /HPF Ur Squamous Epith Cells NONE SEEN (<= Few) Urine Bacteria None Seen (None Seen) /HPF Urine Mucus Moderate Strands Urine Culture Comments NOT INDICATED ABX Reporting Has patient been on IV antibiotics over the past 48 hours?: No Assessment/Plan - Problem List (1) Hip fracture Impression: Conclusion/Plan: plan to have hip repair today morning, will follow up pain control Xray reveal pt had lift hip fracture, pt is with pain. consult with orthopedics NPO mednight IVF pain control It seems very low risk 0.4% in revised cardiac risk index for operation (2) Anxiety Conclusion/Plan: stable, stable, resume home Zoloft (3) Chronic back pain Conclusion/Plan: continue pain control pain control, on Morphine and Toradol, PRN Qualifiers: Encounter type: initial encounter Fracture type: closed Laterality: left Qualified Code(s): S72.002A - Fracture of unspecified part of neck of left femur, initial encounter for closed fracture
[2018-04-12] MEDS ORDERED: DEXAMETHASONE 4 MG/ML VIAL IVP ONE (14:00)
[2018-04-12] MEDS ORDERED: LIDOCAINE-MPF 2% 5 ML VIAL IM ONE (14:00)
[2018-04-12] MEDS ORDERED: fentaNYL 100 MCG/2 ML VIAL IVP ONE (14:00)
[2018-04-12] MEDS ORDERED: MIDAZOLAM 2 MG/2 ML VIAL IVP ONE (14:00)
[2018-04-12] MEDS ORDERED: PROPOFOL 200 MG/20 ML VIAL IVP ONE (14:00)
[2018-04-12] MEDS ORDERED: ONDANSETRON 4 MG/2 ML VIAL IVP ONE (14:00)
[2018-04-12] MEDS ORDERED: BUPIVACAINE 0.25% PF 30 ML VIAL SUBQ ONE ×2 (14:07)
[2018-04-12] MEDS ORDERED: LACTATED RINGERS 1,000 ML IV ONE (14:08)
[2018-04-12] MEDS ORDERED: BUPIVACAINE 0.25% PF 30 ML VIAL ONE (14:24)
[2018-04-12] MEDS ORDERED: PROCHLORPERAZINE 10 MG/2 ML VIAL IVP PRN (14:53)
[2018-04-12] MEDS ORDERED: SENNA 8.6 MG TABLET PO PRN (14:53)
[2018-04-12] MEDS ORDERED: ACETAMINOPHEN 1,000 MG/100 ML 100 ML IV PRN (14:53)
[2018-04-12] MEDS ORDERED: ONDANSETRON 4 MG/2 ML VIAL IVP PRN (14:53)
[2018-04-12] MEDS ORDERED: DOCUSATE SODIUM 100 MG CAPSULE PO PRN (14:53)
[2018-04-12] MEDS ORDERED: SODIUM CHLORIDE FLUSH 0.9% 10 ML SYRINGE IVP PRN (14:53)
--- NOTE | 2018-04-12 14:53 | OPERATIVE REPORT ---
Operative Report - General Admit Date: 04/11/18 Procedure Date: 04/12/18 Planned Procedure: Short interTan nailing of left hip fracture Pre-Op Diagnosis: Closed left IT hip fracture Procedure Performed: Closed reduction and short interTan nailing of left hip fracture Post Op Diagnosis: Same - Procedure Note Primary Surgeon: Suresh Barajas Anesthesia Provider: Pete Rodriguez CRNA Anesthesia Technique: General ET tube IV Fluids (mL): 700 Estimated Blood Loss (mL): 50 Urine Output (mL): 300 Complications: None
--- NOTE | 2018-04-12 15:32 | XRAY Report ---
Procedure Date: 04/12/2018 Accession Number: [id number] / [id number] Procedure: [place] - OR C-Arm Procedure CPT Code: FULL RESULT: EXAM: FLUOROSCOPIC GUIDANCE EXAM DATE: 04/12/2018 02:51 PM. CLINICAL HISTORY: LEFT HIP SHORT INTERCAN NAIL. COMPARISON: None. FINDINGS: No images submitted. IMPRESSION: Fluoroscopic guidance provided for left hip short intercan nail. Total fluoroscopy time: 30 seconds. Number of images: 0. RADIA
--- NOTE | 2018-04-12 15:34 | XRAY Report ---
Procedure Date: 04/12/2018 Accession Number: [id number] / [id number] Procedure: XR - Hip w/Pelvis 2-3V LT CPT Code: FULL RESULT: EXAM: LEFT HIP AND PELVIS RADIOGRAPHY, FLUOROSCOPIC VIEWS EXAM DATE: 04/12/2018 02:53 PM. HISTORY: Pelvis and left hip radiograph 04/11/2018. COMPARISONS: None. TECHNIQUE: 4 fluoroscopic spot views.. FINDINGS: 4 fluoroscopic spot views demonstrate interval left hip internal fixation with femoral head/neck compression pin and femoral intramedullary otto. Near-anatomic alignment demonstrated. IMPRESSION: Left hip ORIF. RADIA
[2018-04-12] MEDS ORDERED: SODIUM CHLORIDE FLUSH 0.9% 10 ML SYRINGE IVP SCH (17:00)
[2018-04-12] MEDS: oxyCOD/ACETAMIN 5 MG/325 MG TABLET PO PRN (17:40)
[2018-04-12] MEDS: SERTRALINE 50 MG TABLET PO SCH (17:40)
--- NOTE | 2018-04-12 18:54 | OPERATIVE REPORT ---
DATE OF SERVICE: 04/12/2018 Physician: Logan Barajas MD DATE OF PROCEDURE: 04/12/2018 PREOPERATIVE DIAGNOSIS: Closed left intertrochanteric hip fracture. POSTOPERATIVE DIAGNOSIS: Closed left intertrochanteric hip fracture. PROCEDURE PERFORMED: Closed reduction and short Intertan nailing of left hip fracture. SURGEON: Logan Barajas MD ANESTHESIA: General. DESCRIPTION OF PROCEDURE: The patient was taken to the operating room on the afternoon of 04/12/2018, where she was placed under general anesthetic without any complications. She was then positioned supine on the fracture table. The right unfractured extremity was flexed and abducted at the hip and held in a well-leg pham. The fractured left lower extremity was then placed into axial traction with the leg internally rotated about 30 degrees. Fluoroscopic views, in AP and lateral projection, showed a good reduction of our fracture. We then prepped and draped the lateral aspect of her hip in the usual fashion for our procedure. We made an oblique skin incision just proximal to the tip of the greater trochanter. We dissected down to the tip of the greater trochanter. This was where we placed the threaded tip of our guidewire. Its position was confirmed with fluoroscopy. We then advanced, with power, the threaded-tip guidewire through the greater trochanter and into the proximal femoral shaft, just past the level of the lesser trochanter. This was felt to be in adequate position in both AP and lateral projections used with our C-arm fluoroscopy. Next, we then applied the channel reamer and reamed the proximal femur over our inserted guidewire, down to the level of the lesser trochanter. We then removed the reamer and the guide pin. We selected an Intertan nail that was 10 mm x 18 cm x 125 degree angle. This was then placed onto our insertion guide and held in place with our set screw. We then proceeded to insert our nail through the prepared proximal femur down to the proper level. Once this was in location, we then placed the oval sleeve guide into the distal end of our insertion apparatus. This was advanced through the small skin incision down to the lateral femoral cortex. We inserted the drill sleeve into our guide. Next, the threaded-tip guidewire was then placed under power through the proximal femur and up into the femoral neck and head. Fluoroscopic view, in AP and lateral projection, showed a good placement of our guide pin. The tip of the guidewire was within about 2 or 3 mm of subchondral bone, both in AP and lateral projections. Direct measuring guide was used and we determined we would use a 105 mm length, subtrochanteric, hip lag screw. We then proceeded to remove our drill sleeve out of our guide and reamed the proximal femur with the cannulated reamer to within a few millimeters of the subchondral bone. The selected subtrochanteric hip lag screw (11 mm x 105 mm) was then placed onto our screwdriver and this was then inserted over our guide pin. This went through the proximal end of our nail and up into the femoral neck and femoral head to within a few millimeters of the subchondral bone. Fluoroscopic view, in AP and lateral projections, showed good position and depth of penetration in both AP and lateral projections. Next, we released the tension on the leg and proceeded to compress the fracture using the compression knob that was part of our insertion apparatus. Fluoroscopic views showed good impaction of our fracture. At this point, we then removed the screw insertion apparatus, after we had locked the lag screw onto the nail with the set screw that was part of the nail. This was done with the hinged screwdriver and through the proximal end of our nail. After we got a snug interface with the set screw, we then backed it off by 90 degrees, per the directions in our manual. Again, the hip lag screw apparatus was removed from the nail. Next, we then made a small skin incision down at the distal end of our insertion apparatus. We then inserted a concentric silver and gold drill sleeve through the distal end of our insertion apparatus through the small skin incision. We then drilled the lateral and medial femoral shaft cortex in line with our drill sleeve. Fluoroscopic views showed the screw to be at a proper penetration through both cortices. The measurement off of our drill sleeve indicated we would use a 32.5 mm length distal locking screw. The selected screw was then inserted with our screw insertion apparatus. We then inserted the screw through our gold sleeve, after the silver insert and central sleeve had been removed. We inserted the screw until we got good bicortical purchase. Fluoroscopic views showed the screw to be adequately inserted in both AP and lateral projections. We then got final x-rays of the hip, again showing good reduction of our fracture and satisfactory placement of hardware. These images were then sent to Radiology. We then removed the insertion apparatus with a ball-tip screwdriver, irrigated the wounds thoroughly with saline, then closed the wound in layers using 0 Vicryl to close the fascia anabel layer proximally. Buried 2-0 Vicryl was used to approximate the subcutaneous tissue and the proximal 2 incisions. Finally, skin marcos were used to approximate the skin edges of all the wounds. We injected 20 mL of 0.25% Marcaine to provide local incisional anesthesia in all 3 incisions. After dressing the wounds, we then transferred the patient off the fracture table onto her bed, and she was taken to the recovery room in satisfactory condition. ESTIMATED BLOOD LOSS: 50 mL REPLACEMENT: 700 mL INTRAOPERATIVE COMPLICATIONS: None. PLAN: The patient will be advanced in physical therapy with weightbearing as tolerated on the left lower extremity with physical therapy assistance. This will be started on the first postoperative date. TD: 04/12/2018 15:19
[2018-04-12] MEDS: MORPHINE 2 MG/ML SYRINGE IVP PRN (19:37)
[2018-04-12 19:51] LABS: HGB - HEMOGLOBIN 8.3 g/dL (12.0-16.0)
[2018-04-12] MEDS: ceFAZolin 2 GM/50 ML 2 GM/50 ML BAG IV SCH (21:24)
[2018-04-13] MEDS: SODIUM CHLORIDE FLUSH 0.9% 10 ML SYRINGE IVP SCH ×3 (05:53→17:04)
[2018-04-13] MEDS: SODIUM CHLORIDE 0.9% 1,000 ML IV SCH (05:54)
[2018-04-13] MEDS: ceFAZolin 2 GM/50 ML 2 GM/50 ML BAG IV SCH (05:56)
[2018-04-13] MEDS: oxyCOD/ACETAMIN 5 MG/325 MG TABLET PO PRN ×2 (06:16→13:24)
[2018-04-13 06:21] LABS: ALBUMIN 2.8 g/dL (3.2-5.5); ALBUMIN/GLOBULIN RATIO 1.3 (1.0-2.2); BASOPHILS % (AUTO) 0.1 %; BILIRUBIN,TOTAL 0.7 mg/dL (0.2-1.0); CREATININE 0.4 mg/dL (0.4-1.0); HGB - HEMOGLOBIN 7.4 g/dL (12.0-16.0); LYMPHOCYTES % (AUTO) 8.6 %; MEAN CORPUSCULAR HEMOGLOBIN 32.1 pg (27.0-31.0); MEAN CORPUSCULAR HGB CONC 32.4 g/dL (32.0-36.0); MEAN CORPUSCULAR VOLUME 99.1 fL (81.0-99.0); MEAN PLATELET VOLUME 7.7 fL (7.9-10.8); MONOCYTES % (AUTO) 23.6 %; NEUTROPHILS % (AUTO) 67.7 %; PLT - PLATELET COUNT 164 10^3/uL (130-450); RED BLOOD COUNT 2.31 10^6/uL (4.20-5.40); RED CELL DISTRIBUTION WIDTH 23.7 % (12.0-15.0); WHITE BLOOD COUNT 9.6 x10^3/uL (4.8-10.8)
[2018-04-13 06:30] LABS: ABNORMAL LYMPHS % (MANUAL) 0 %
[2018-04-13 06:53] LABS: BAND NEUTROPHILS % (MANUAL) 2 %; LYMPHOCYTES # (MANUAL) 1.8 10^3/uL (1.5-3.5); LYMPHOCYTES % (MANUAL) 19 %; MONOCYTES # (MANUAL) 1.2 10^3/uL (0.0-1.0); NEUTROPHILS # (MANUAL) 6.6 10^3/uL (1.5-6.6); NEUTROPHILS % (MANUAL) 67 %
[2018-04-13 06:54] LABS: DIFFERENTIAL COMMENT MANUAL DIFFERENTIAL; PLATELET ESTIMATE, MANUAL NORMAL (130-450,000) (NORMAL)
--- NOTE | 2018-04-13 08:05 | PROVIDER PROGRESS NOTE ---
Subjective - Prog Note Date Prog Note Date: 04/13/18 Prog Note Time: 08:03 - Subjective Pt reports feeling: Improved (Less hip pain. No SOB or dizziness in bed) Objective - Vital Signs/Intake & Output Vital Signs: Vital Signs x48h Temp Pulse Resp BP Pulse Ox 04/13/18 04:48 36.6 C 85 18 124/36 L 95 Intake & Output: Intake & Output 04/10/18 04/11/18 04/12/18 04/13/18 23:59 23:59 23:59 23:59 Intake Total 150 3430 853.333 Output Total 150 450 375 Balance 0 2980 478.333 - Lab Results Fish Bones: 04/13/18 05:50 04/13/18 05:50 Other Labs: Lab Results x24hrs 04/13/18 04/13/18 04/13/18 Range/Units 07:31 05:50 05:50 WBC (4.8-10.8) x10^3/uL RBC (4.20-5.40) 10^6/uL Hgb (12.0-16.0) g/dL Hct (37.0-47.0) % MCV (81.0-99.0) fL MCH (27.0-31.0) pg MCHC (32.0-36.0) g/dL RDW (12.0-15.0) % Plt Count (130-450) 10^3/uL MPV (7.9-10.8) fL Reticulocyte % (Auto) (0.5-2.3) % Neut # (Auto) Lymph # (Auto) [place] # (Auto) Eos # (Auto) Baso # (Auto) Absolute Nucleated RBC Total Counted Band Neuts % (Manual) (0 - 10) % Abnorm Lymph % (Manual) % Nucleated RBC % Neutrophils # (Manual) (1.5-6.6) 10^3/uL Lymphocytes # (Manual) (1.5-3.5) 10^3/uL Monocytes # (Manual) (0.0-1.0) 10^3/uL Eosinophils # (Manual) (0-0.7) 10^3/uL Basophils # (Manual) (0-0.1) 10^3/uL Differential Comment Platelet Estimate (NORMAL) RBC Morph Micro Appear (NORMAL) Absolute Retic (0.020-0.110) 10^6/uL PT (9.9-12.6) secs INR (0.8-1.2) Sodium 140 (135-145) mmol/L Potassium 3.8 (3.5-5.0) mmol/L Chloride 110 (101-111) mmol/L Carbon Dioxide 26 (21-32) mmol/L Anion Gap 4.0 L (6-13) BUN 12 (6-20) mg/dL Creatinine 0.4 (0.4-1.0) mg/dL Estimated GFR (MDRD) 151 (>89) Glucose 105 H (70-100) mg/dL Calcium 8.0 L (8.5-10.3) mg/dL Iron (28-170) ug/dL TIBC (250-450) ug/dL % Saturation (20-50) % Transferrin (192-382) mg/dL Ferritin (11.0-306.8) ng/mL Total Bilirubin 0.7 (0.2-1.0) mg/dL AST 20 (10-42) IU/L ALT 13 (10-60) IU/L Alkaline Phosphatase 45 (42-121) IU/L Lactate Dehydrogenase (91-225) IU/L Total Protein 5.0 L (6.7-8.2) g/dL Albumin 2.8 L (3.2-5.5) g/dL Globulin 2.2 (2.1-4.2) g/dL Albumin/Globulin Ratio 1.3 (1.0-2.2) Vitamin B12 (180-914) pg/mL Blood Type A POSITIVE Blood Type Recheck A POSITIVE Antibody Screen NEGATIVE Crossmatch IS Only See Detail 04/13/18 04/12/18 04/12/18 Range/Units 05:50 19:43 08:56 WBC 9.6 (4.8-10.8) x10^3/uL RBC 2.31 L (4.20-5.40) 10^6/uL Hgb 7.4 L 8.3 L (12.0-16.0) g/dL Hct 22.9 L 25.5 L (37.0-47.0) % MCV 99.1 H (81.0-99.0) fL MCH 32.1 H (27.0-31.0) pg MCHC 32.4 (32.0-36.0) g/dL RDW 23.7 H (12.0-15.0) % Plt Count 164 (130-450) 10^3/uL MPV 7.7 L (7.9-10.8) fL Reticulocyte % (Auto) (0.5-2.3) % Neut # (Auto) Not Reportable Lymph # (Auto) Not Reportable [place] # (Auto) Not Reportable Eos # (Auto) Not Reportable Baso # (Auto) Not Reportable Absolute Nucleated RBC Not Reportable Total Counted 100 Band Neuts % (Manual) 2 (0 - 10) % Abnorm Lymph % (Manual) 0 % Nucleated RBC % Not Reportable Neutrophils # (Manual) 6.6 (1.5-6.6) 10^3/uL Lymphocytes # (Manual) 1.8 (1.5-3.5) 10^3/uL Monocytes # (Manual) 1.2 H (0.0-1.0) 10^3/uL Eosinophils # (Manual) 0.0 (0-0.7) 10^3/uL Basophils # (Manual) 0.0 (0-0.1) 10^3/uL Differential Comment MANUAL DIFFERENTIAL Platelet Estimate NORMAL (130-450,000) (NORMAL) RBC Morph Micro Appear 1+ OVALOCYTES (NORMAL) Absolute Retic (0.020-0.110) 10^6/uL PT 16.5 H (9.9-12.6) secs INR 1.5 H (0.8-1.2) Sodium (135-145) mmol/L Potassium (3.5-5.0) mmol/L Chloride (101-111) mmol/L Carbon Dioxide (21-32) mmol/L Anion Gap (6-13) BUN (6-20) mg/dL Creatinine (0.4-1.0) mg/dL Estimated GFR (MDRD) (>89) Glucose (70-100) mg/dL Calcium (8.5-10.3) mg/dL Iron (28-170) ug/dL TIBC (250-450) ug/dL % Saturation (20-50) % Transferrin (192-382) mg/dL Ferritin (11.0-306.8) ng/mL Total Bilirubin (0.2-1.0) mg/dL AST (10-42) IU/L ALT (10-60) IU/L Alkaline Phosphatase (42-121) IU/L Lactate Dehydrogenase (91-225) IU/L Total Protein (6.7-8.2) g/dL Albumin (3.2-5.5) g/dL Globulin (2.1-4.2) g/dL Albumin/Globulin Ratio (1.0-2.2) Vitamin B12 (180-914) pg/mL Blood Type Blood Type Recheck Antibody Screen Crossmatch IS Only 04/12/18 04/12/18 04/12/18 Range/Units 05:15 05:15 05:15 WBC (4.8-10.8) x10^3/uL RBC (4.20-5.40) 10^6/uL Hgb (12.0-16.0) g/dL Hct (37.0-47.0) % MCV (81.0-99.0) fL MCH (27.0-31.0) pg MCHC (32.0-36.0) g/dL RDW (12.0-15.0) % Plt Count (130-450) 10^3/uL MPV (7.9-10.8) fL Reticulocyte % (Auto) (0.5-2.3) % Neut # (Auto) Lymph # (Auto) [place] # (Auto) Eos # (Auto) Baso # (Auto) Absolute Nucleated RBC Total Counted Band Neuts % (Manual) (0 - 10) % Abnorm Lymph % (Manual) % Nucleated RBC % Neutrophils # (Manual) (1.5-6.6) 10^3/uL Lymphocytes # (Manual) (1.5-3.5) 10^3/uL Monocytes # (Manual) (0.0-1.0) 10^3/uL Eosinophils # (Manual) (0-0.7) 10^3/uL Basophils # (Manual) (0-0.1) 10^3/uL Differential Comment Platelet Estimate (NORMAL) RBC Morph Micro Appear (NORMAL) Absolute Retic (0.020-0.110) 10^6/uL PT (9.9-12.6) secs INR (0.8-1.2) Sodium (135-145) mmol/L Potassium (3.5-5.0) mmol/L Chloride (101-111) mmol/L Carbon Dioxide (21-32) mmol/L Anion Gap (6-13) BUN (6-20) mg/dL Creatinine (0.4-1.0) mg/dL Estimated GFR (MDRD) (>89) Glucose (70-100) mg/dL Calcium (8.5-10.3) mg/dL Iron 41 (28-170) ug/dL TIBC 186 L (250-450) ug/dL % Saturation 22 (20-50) % Transferrin 133 L (192-382) mg/dL Ferritin 280.8 (11.0-306.8) ng/mL Total Bilirubin (0.2-1.0) mg/dL AST (10-42) IU/L ALT (10-60) IU/L Alkaline Phosphatase (42-121) IU/L Lactate Dehydrogenase 189 (91-225) IU/L Total Protein (6.7-8.2) g/dL Albumin (3.2-5.5) g/dL Globulin (2.1-4.2) g/dL Albumin/Globulin Ratio (1.0-2.2) Vitamin B12 562 (180-914) pg/mL Blood Type Blood Type Recheck Antibody Screen Crossmatch IS Only 04/12/18 Range/Units 05:15 WBC (4.8-10.8) x10^3/uL RBC 2.63 L (4.20-5.40) 10^6/uL Hgb (12.0-16.0) g/dL Hct (37.0-47.0) % MCV (81.0-99.0) fL MCH (27.0-31.0) pg MCHC (32.0-36.0) g/dL RDW (12.0-15.0) % Plt Count (130-450) 10^3/uL MPV (7.9-10.8) fL Reticulocyte % (Auto) 2.43 H (0.5-2.3) % Neut # (Auto) Lymph # (Auto) [place] # (Auto) Eos # (Auto) Baso # (Auto) Absolute Nucleated RBC Total Counted Band Neuts % (Manual) (0 - 10) % Abnorm Lymph % (Manual) % Nucleated RBC % Neutrophils # (Manual) (1.5-6.6) 10^3/uL Lymphocytes # (Manual) (1.5-3.5) 10^3/uL Monocytes # (Manual) (0.0-1.0) 10^3/uL Eosinophils # (Manual) (0-0.7) 10^3/uL Basophils # (Manual) (0-0.1) 10^3/uL Differential Comment Platelet Estimate (NORMAL) RBC Morph Micro Appear (NORMAL) Absolute Retic 0.064 (0.020-0.110) 10^6/uL PT (9.9-12.6) secs INR (0.8-1.2) Sodium (135-145) mmol/L Potassium (3.5-5.0) mmol/L Chloride (101-111) mmol/L Carbon Dioxide (21-32) mmol/L Anion Gap (6-13) BUN (6-20) mg/dL Creatinine (0.4-1.0) mg/dL Estimated GFR (MDRD) (>89) Glucose (70-100) mg/dL Calcium (8.5-10.3) mg/dL Iron (28-170) ug/dL TIBC (250-450) ug/dL % Saturation (20-50) % Transferrin (192-382) mg/dL Ferritin (11.0-306.8) ng/mL Total Bilirubin (0.2-1.0) mg/dL AST (10-42) IU/L ALT (10-60) IU/L Alkaline Phosphatase (42-121) IU/L Lactate Dehydrogenase (91-225) IU/L Total Protein (6.7-8.2) g/dL Albumin (3.2-5.5) g/dL Globulin (2.1-4.2) g/dL Albumin/Globulin Ratio (1.0-2.2) Vitamin B12 (180-914) pg/mL Blood Type Blood Type Recheck Antibody Screen Crossmatch IS Only - Other Results/Comments Other Results/Comments: EXAM: Dressing intact. minimal hip pain with rotation. Moves toes well. Sensation intact. Assessment/Plan - Problem List (1) Hip fracture Impression: Doing well post op PLAN: Transfuse one unit PRBC this AM. Repeat CBC in AM. Mobilize as tolerated in PT. Qualifiers: Encounter type: initial encounter Fracture type: closed Laterality: left Qualified Code(s): S72.002A - Fracture of unspecified part of neck of left femur, initial encounter for closed fracture
[2018-04-13] MEDS: ENOXAPARIN 40 MG/0.4 ML SYRINGE SUBQ SCH (08:53)
[2018-04-13] MEDS: SERTRALINE 50 MG TABLET PO SCH (08:53)
[2018-04-13] MEDS: FERROUS SULFATE 325 MG TABLET PO SCH (08:53)
[2018-04-13] MEDS: CALCIUM CITRATE 250 MG TABLET PO SCH (08:53)
[2018-04-13] MEDS: FAMOTIDINE 20 MG TABLET PO SCH (08:53)
[2018-04-13] MEDS: POLYETHYLENE GLYCOL 3350 17 GM PACKET PO SCH (08:53)
--- NOTE | 2018-04-13 15:35 | PROVIDER PROGRESS NOTE ---
Subjective - Prog Note Date Prog Note Date: 04/13/18 - Subjective Pt reports feeling: Improved Subjective: pt report she feel better, pain is in the controlled. she is comfortably eating her breakfast. No CP, fever,chill, cough, SOB Current Medications - Current Medications Current Medications: Active Medications Acetaminophen (Tylenol) 650 - 975 mg PO Q4HR PRN PRN Reason: PAIN Calcium Citrate () 250 mg PO DAILY [facility] Last Admin: 04/13/18 08:53 Dose: 250 mg Enoxaparin Sodium (Lovenox) 40 mg SUBQ DAILY [facility] Last Admin: 04/13/18 08:53 Dose: 40 mg Famotidine (Pepcid) 20 mg PO DAILY [facility] Last Admin: 04/13/18 08:53 Dose: 20 mg Ferrous Sulfate (Feosol) 325 mg PO DAILYWM [facility] Last Admin: 04/13/18 08:53 Dose: 325 mg Acetaminophen (Ofirmev) 100 mls @ 400 mls/hr IV Q6HR PRN PRN Reason: PAIN Sodium Chloride (Normal Saline 0.9%) 1,000 mls @ 100 mls/hr IV .Q10H [facility] Last Infusion: 04/13/18 06:27 Dose: 100 mls/hr Morphine Sulfate (Morphine) 2 mg IVP Q2HR PRN PRN Reason: PAIN Last Admin: 04/12/18 19:37 Dose: 2 mg Ondansetron HCl (Zofran Inj) 4 mg IVP Q6HR PRN PRN Reason: Nausea / Vomiting Oxycodone/Acetaminophen (Percocet 5 Mg/325 Mg) 1 tab PO Q4HR PRN PRN Reason: PAIN Last Admin: 04/13/18 13:24 Dose: 1 tab Polyethylene Glycol (Miralax) 17 gm PO DAILY [facility] Last Admin: 04/13/18 08:53 Dose: Not Given Prochlorperazine Edisylate (Compazine Inj) 10 mg IVP Q6HR PRN PRN Reason: Nausea / Vomiting Sertraline HCl (Zoloft) 50 mg PO DAILY [facility] Last Admin: 04/13/18 08:53 Dose: 50 mg Sodium Chloride (Normal Saline Flush 0.9%) 10 ml IVP PRN PRN PRN Reason: NEEDED PER PROVIDER ORDERS Sodium Chloride (Normal Saline Flush 0.9%) 10 ml IVP 0100,0900,1700 JOL[facility]A Last Admin: 04/13/18 08:53 Dose: Not Given Zolpidem Tartrate (Ambien) 5 mg PO QPM PRN PRN Reason: Insomnia Last Admin: 04/12/18 00:35 Dose: 5 mg Ascorbic Acid [Vitamin C] 1,000 mg PO DAILY 04/10/18 Aspirin [Adult Low Dose Aspirin EC] 81 mg PO DAILY 04/13/18 Calcium Carbonate [[id number]] 750 mg PO BID 04/13/18 Hydroxyurea [Hydroxyurea] 500 mg PO DAILY 04/13/18 Sertraline HCl 100 mg PO DAILY 04/13/18 Objective - Vital Signs/Intake & Output Reviewed Vital Signs: Yes Vital Signs: Vital Signs x48h Temp Pulse Pulse Pulse Pulse Pulse Resp 04/13/18 13:03 36.7 C 89 14 04/13/18 11:30 36.7 C 93 16 04/13/18 10:55 92 92 87 04/13/18 09:00 36.5 C 63 18 04/13/18 08:57 36.7 C 93 14 04/13/18 08:36 37.0 C 94 16 BP BP BP BP BP Pulse Ox 04/13/18 13:03 105/84 H 95 04/13/18 11:30 140/49 H 04/13/18 10:55 140/49 H 129/51 L 132/67 H 04/13/18 09:00 123/45 L 94 04/13/18 08:57 123/45 L 04/13/18 08:36 127/48 L Intake & Output: Intake & Output 04/10/18 04/11/18 04/12/18 04/13/18 23:59 23:59 23:59 23:59 Intake Total 150 3430 2348.333 Output Total 150 450 700 Balance 0 2980 1648.333 - Objective General Appearance: positive: No acute distress, Alert. negative: Lethargic Eyes Bilateral: positive: Normal inspection, PERRL, No lid inflammation, Conjunctivae nml ENT: positive: ENT inspection nml, Pharynx nml, No signs of dehydration. negative: Purulent nasal drainage, Pharyngeal erythema, Oral lesions Neck: positive: Nml inspection, Thyroid nml, No JVD, Trachea midline. negative : Thyromegaly, Lymphadenopathy (R), Lymphadenopathy (L), Stiff neck, Swelling/ bruising, Tracheal deviation Respiratory: positive: Chest non-tender, No respiratory distress, Breath sounds nml. negative: Wheezes, Rales, Rhonchi Cardiovascular: positive: Regular rate & rhythm, No murmur, No gallop. negative : Irregularly irregular, Extrasystoles, Tachycardia, Bradycardia, JVD present, Systolic murmur, Diastolic murmur Peripheral Pulses: 2+ Radial (R), 2+ Radial (L), 2+ Dorsalis pedis (R), 2+ Dorsalis pedis (L) Abdomen: positive: Non-tender, No organomegaly, Nml bowel sounds, No distention. negative: Tenderness, Guarding, Rebound Back: positive: Nml inspection. negative: CVA tenderness (R), CVA tenderness (L ) Skin: positive: Color nml, No rash, Warm, Dry. negative: Cyanosis, Diaphoresis , Pallor Extremities: positive: Non-tender, Nml appearance. negative: Calf tenderness, Joint swelling, Gayatri's sign/cords Neurologic/Psychiatric: positive: Oriented x3, Motor nml, Sensation nml. negative: Weakness, Sensory loss, Facial droop, Slurred/abnml speech, Depressed mood/affect - Lab Results Fish Bones: 04/13/18 05:50 04/13/18 05:50 Other Labs: Lab Results x24hrs 04/13/18 04/13/18 04/13/18 Range/Units 07:31 05:50 05:50 WBC (4.8-10.8) x10^3/uL RBC (4.20-5.40) 10^6/uL Hgb (12.0-16.0) g/dL Hct (37.0-47.0) % MCV (81.0-99.0) fL MCH (27.0-31.0) pg MCHC (32.0-36.0) g/dL RDW (12.0-15.0) % Plt Count (130-450) 10^3/uL MPV (7.9-10.8) fL Neut # (Auto) Lymph # (Auto) [place] # (Auto) Eos # (Auto) Baso # (Auto) Absolute Nucleated RBC Total Counted Band Neuts % (Manual) (0 - 10) % Abnorm Lymph % (Manual) % Nucleated RBC % Neutrophils # (Manual) (1.5-6.6) 10^3/uL Lymphocytes # (Manual) (1.5-3.5) 10^3/uL Monocytes # (Manual) (0.0-1.0) 10^3/uL Eosinophils # (Manual) (0-0.7) 10^3/uL Basophils # (Manual) (0-0.1) 10^3/uL Differential Comment Platelet Estimate (NORMAL) RBC Morph Micro Appear (NORMAL) Sodium 140 (135-145) mmol/L Potassium 3.8 (3.5-5.0) mmol/L Chloride 110 (101-111) mmol/L Carbon Dioxide 26 (21-32) mmol/L Anion Gap 4.0 L (6-13) BUN 12 (6-20) mg/dL Creatinine 0.4 (0.4-1.0) mg/dL Estimated GFR (MDRD) 151 (>89) Glucose 105 H (70-100) mg/dL Calcium 8.0 L (8.5-10.3) mg/dL Total Bilirubin 0.7 (0.2-1.0) mg/dL AST 20 (10-42) IU/L ALT 13 (10-60) IU/L Alkaline Phosphatase 45 (42-121) IU/L Total Protein 5.0 L (6.7-8.2) g/dL Albumin 2.8 L (3.2-5.5) g/dL Globulin 2.2 (2.1-4.2) g/dL Albumin/Globulin Ratio 1.3 (1.0-2.2) Blood Type A POSITIVE Blood Type Recheck A POSITIVE Antibody Screen NEGATIVE Crossmatch IS Only See Detail 04/13/18 04/12/18 Range/Units 05:50 19:43 WBC 9.6 (4.8-10.8) x10^3/uL RBC 2.31 L (4.20-5.40) 10^6/uL Hgb 7.4 L 8.3 L (12.0-16.0) g/dL Hct 22.9 L 25.5 L (37.0-47.0) % MCV 99.1 H (81.0-99.0) fL MCH 32.1 H (27.0-31.0) pg MCHC 32.4 (32.0-36.0) g/dL RDW 23.7 H (12.0-15.0) % Plt Count 164 (130-450) 10^3/uL MPV 7.7 L (7.9-10.8) fL Neut # (Auto) Not Reportable Lymph # (Auto) Not Reportable [place] # (Auto) Not Reportable Eos # (Auto) Not Reportable Baso # (Auto) Not Reportable Absolute Nucleated RBC Not Reportable Total Counted 100 Band Neuts % (Manual) 2 (0 - 10) % Abnorm Lymph % (Manual) 0 % Nucleated RBC % Not Reportable Neutrophils # (Manual) 6.6 (1.5-6.6) 10^3/uL Lymphocytes # (Manual) 1.8 (1.5-3.5) 10^3/uL Monocytes # (Manual) 1.2 H (0.0-1.0) 10^3/uL Eosinophils # (Manual) 0.0 (0-0.7) 10^3/uL Basophils # (Manual) 0.0 (0-0.1) 10^3/uL Differential Comment MANUAL DIFFERENTIAL Platelet Estimate NORMAL (130-450,000) (NORMAL) RBC Morph Micro Appear 1+ OVALOCYTES (NORMAL) Sodium (135-145) mmol/L Potassium (3.5-5.0) mmol/L Chloride (101-111) mmol/L Carbon Dioxide (21-32) mmol/L Anion Gap (6-13) BUN (6-20) mg/dL Creatinine (0.4-1.0) mg/dL Estimated GFR (MDRD) (>89) Glucose (70-100) mg/dL Calcium (8.5-10.3) mg/dL Total Bilirubin (0.2-1.0) mg/dL AST (10-42) IU/L ALT (10-60) IU/L Alkaline Phosphatase (42-121) IU/L Total Protein (6.7-8.2) g/dL Albumin (3.2-5.5) g/dL Globulin (2.1-4.2) g/dL Albumin/Globulin Ratio (1.0-2.2) Blood Type Blood Type Recheck Antibody Screen Crossmatch IS Only ABX Reporting Has patient been on IV antibiotics over the past 48 hours?: No Assessment/Plan - Problem List (1) Hip fracture Impression: Conclusion/Plan: pt report she is better today, pain is controlled. continue PT/OT, ambulation follow up surgeon plan to have hip repair today morning, will follow up pain control Xray reveal pt had lift hip fracture, pt is with pain. consult with orthopedics NPO mednight IVF pain control It seems very low risk 0.4% in revised cardiac risk index for operation (2) Anxiety Conclusion/Plan: stable, stable, resume home Zoloft (3) Chronic back pain Conclusion/Plan: continue pain control pain control, on Morphine and Toradol, PRN (4) anemia pt's HGB 7.4, iron study unspecific, transfusion blood to pt lab monitor, vital monitor H&H Qualifiers: Encounter type: initial encounter Fracture type: closed Laterality: left Qualified Code(s): S72.002A - Fracture of unspecified part of neck of left femur, initial encounter for closed fracture
[2018-04-13 18:12] LABS: HGB - HEMOGLOBIN 8.9 g/dL (12.0-16.0)
[2018-04-13] MEDS: MORPHINE 2 MG/ML SYRINGE IVP PRN (23:01)
[2018-04-14] MEDS: SODIUM CHLORIDE 0.9% 1,000 ML IV SCH ×3 (00:04→15:26)
[2018-04-14] MEDS: SODIUM CHLORIDE FLUSH 0.9% 10 ML SYRINGE IVP SCH ×4 (00:05→23:32)
[2018-04-14] MEDS: oxyCOD/ACETAMIN 5 MG/325 MG TABLET PO PRN ×2 (04:05→12:34)
[2018-04-14 05:32] LABS: BASOPHILS % (AUTO) 0.1 %; EOSINOPHILS % (AUTO) 0.2 %; HGB - HEMOGLOBIN 7.5 g/dL (12.0-16.0); LYMPHOCYTES % (AUTO) 7.9 %; MEAN CORPUSCULAR HEMOGLOBIN 31.2 pg (27.0-31.0); MEAN CORPUSCULAR HGB CONC 33.1 g/dL (32.0-36.0); MEAN CORPUSCULAR VOLUME 94.3 fL (81.0-99.0); MEAN PLATELET VOLUME 7.9 fL (7.9-10.8); MONOCYTES % (AUTO) 31.4 %; NEUTROPHILS % (AUTO) 60.4 %; PLT - PLATELET COUNT 165 10^3/uL (130-450); RED CELL DISTRIBUTION WIDTH 27.1 % (12.0-15.0); WHITE BLOOD COUNT 9.1 x10^3/uL (4.8-10.8)
[2018-04-14 05:35] LABS: ABNORMAL LYMPHS % (MANUAL) 0 %; BAND NEUTROPHILS % (MANUAL) 0 %
[2018-04-14 06:21] LABS: ALBUMIN 2.6 g/dL (3.2-5.5); BILIRUBIN,TOTAL 0.7 mg/dL (0.2-1.0); CALCIUM 8.1 mg/dL (8.5-10.3); CREATININE 0.4 mg/dL (0.4-1.0); TOTAL PROTEIN 5.1 g/dL (6.7-8.2)
[2018-04-14 07:13] LABS: LYMPHOCYTES # (MANUAL) 1.5 10^3/uL (1.5-3.5); LYMPHOCYTES % (MANUAL) 17 %; METAMYELOCYTES % (MANUAL) 1 %; MONOCYTES # (MANUAL) 1.9 10^3/uL (0.0-1.0); MYELOCYTES % (MANUAL) 1 %; NEUTROPHILS # (MANUAL) 5.5 10^3/uL (1.5-6.6); NEUTROPHILS % (MANUAL) 60 %
[2018-04-14 07:14] LABS: DIFFERENTIAL COMMENT MANUAL DIFFERENTIAL; PLATELET ESTIMATE, MANUAL NORMAL (130-450,000) (NORMAL)
[2018-04-14] MEDS: FERROUS SULFATE 325 MG TABLET PO SCH (09:36)
[2018-04-14] MEDS: FAMOTIDINE 20 MG TABLET PO SCH (09:36)
[2018-04-14] MEDS: CALCIUM CITRATE 250 MG TABLET PO SCH (09:36)
[2018-04-14] MEDS: ENOXAPARIN 40 MG/0.4 ML SYRINGE SUBQ SCH (09:36)
[2018-04-14] MEDS: POLYETHYLENE GLYCOL 3350 17 GM PACKET PO SCH (09:37)
[2018-04-14] MEDS: SERTRALINE 50 MG TABLET PO SCH (09:53)
--- NOTE | 2018-04-14 11:16 | PROVIDER PROGRESS NOTE ---
Subjective - Prog Note Date Prog Note Date: 04/14/18 Prog Note Time: 11:14 - Subjective Pt reports feeling: Improved (Mild hip pain. Sitting up with minimal discomfort ) Objective - Vital Signs/Intake & Output Vital Signs: Vital Signs x48h Temp Pulse Resp BP Pulse Ox 04/14/18 07:58 36.8 C 98 1 L 124/52 L 94 04/14/18 04:16 36.6 C 105 H 16 130/43 L 94 Intake & Output: Intake & Output 04/11/18 04/12/18 04/13/18 04/14/18 23:59 23:59 23:59 23:59 Intake Total 150 3430 3343.333 1525 Output Total 150 450 700 Balance 0 2980 2643.333 1525 - Lab Results Fish Bones: 04/14/18 05:05 04/14/18 05:05 Other Labs: Lab Results x24hrs 04/14/18 04/14/18 04/13/18 Range/Units 05:05 05:05 17:54 WBC 9.1 (4.8-10.8) x10^3/uL RBC 2.40 L (4.20-5.40) 10^6/uL Hgb 7.5 L 8.9 L (12.0-16.0) g/dL Hct 22.6 L 27.1 L (37.0-47.0) % MCV 94.3 (81.0-99.0) fL MCH 31.2 H (27.0-31.0) pg MCHC 33.1 (32.0-36.0) g/dL RDW 27.1 H (12.0-15.0) % Plt Count 165 (130-450) 10^3/uL MPV 7.9 (7.9-10.8) fL Neut # (Auto) Not Reportable Lymph # (Auto) Not Reportable [place] # (Auto) Not Reportable Eos # (Auto) Not Reportable Baso # (Auto) Not Reportable Absolute Nucleated RBC Not Reportable Total Counted 100 Band Neuts % (Manual) 0 (0 - 10) % Abnorm Lymph % (Manual) 0 % Metamyelocytes % 1 H ( - 0) % Myelocytes % 1 H ( - 0) % Nucleated RBC % Not Reportable Neutrophils # (Manual) 5.5 (1.5-6.6) 10^3/uL Lymphocytes # (Manual) 1.5 (1.5-3.5) 10^3/uL Monocytes # (Manual) 1.9 H (0.0-1.0) 10^3/uL Eosinophils # (Manual) 0.0 (0-0.7) 10^3/uL Basophils # (Manual) 0.0 (0-0.1) 10^3/uL Differential Comment MANUAL DIFFERENTIAL Platelet Estimate NORMAL (130-450,000) (NORMAL) RBC Morph Micro Appear 1+ MICROCYTOSIS (NORMAL) Sodium 138 (135-145) mmol/L Potassium 3.5 (3.5-5.0) mmol/L Chloride 107 (101-111) mmol/L Carbon Dioxide 26 (21-32) mmol/L Anion Gap 5.0 L (6-13) BUN 13 (6-20) mg/dL Creatinine 0.4 (0.4-1.0) mg/dL Estimated GFR (MDRD) 151 (>89) Glucose 130 H (70-100) mg/dL Calcium 8.1 L (8.5-10.3) mg/dL Total Bilirubin 0.7 (0.2-1.0) mg/dL AST 18 (10-42) IU/L ALT 11 (10-60) IU/L Alkaline Phosphatase 43 (42-121) IU/L Total Protein 5.1 L (6.7-8.2) g/dL Albumin 2.6 L (3.2-5.5) g/dL Globulin 2.5 (2.1-4.2) g/dL Albumin/Globulin Ratio 1.0 (1.0-2.2) - Other Results/Comments Other Results/Comments: EXAM: Dressing intact. Mild tenderness laterally. Mild pain with hip rotation. Moves toes well. Sensation intact. Good cap filling Assessment/Plan - Problem List (1) Hip fracture Impression: Satis post op PLAN: To snf tomorrow or Tuesday. Mobilize as tolerated with PT- WBAT on left. Follow up in orthopedic clinic in 2 weeks for marcos out and XR. Qualifiers: Encounter type: initial encounter Fracture type: closed Laterality: left Qualified Code(s): S72.002A - Fracture of unspecified part of neck of left femur, initial encounter for closed fracture
--- NOTE | 2018-04-14 13:12 | PROVIDER PROGRESS NOTE ---
Subjective - Prog Note Date Prog Note Date: 04/14/18 Prog Note Time: 13:10 (seen ~ 8am) - Subjective Pt reports feeling: Improved (not thrilled about going to SNF, but will, ( daughter very adamant that she need rehab)) Current Medications - Current Medications Current Medications: Active Medications Generic Name Dose Route Start Last Admin Trade Name Freq PRN Reason Stop Dose Admin Acetaminophen 650 - 975 mg 04/12/18 14:53 Tylenol PO Q4HR PRN PAIN Calcium Citrate 250 mg 04/13/18 09:00 04/14/18 09:36 PO 250 mg DAILY JOLANTA Administration Enoxaparin Sodium 40 mg 04/12/18 09:00 04/14/18 09:36 Lovenox SUBQ 40 mg DAILY JOLANTA Administration Famotidine 20 mg 04/12/18 09:00 04/14/18 09:36 Pepcid PO 20 mg DAILY JOLANTA Administration Ferrous Sulfate 325 mg 04/13/18 08:00 04/14/18 09:36 Feosol PO 325 mg DAILYWM JOLANTA Administration Acetaminophen 100 mls @ 400 mls/hr 04/12/18 14:53 Ofirmev IV Q6HR PRN PAIN Sodium Chloride 1,000 mls @ 100 mls/hr 04/12/18 15:00 04/14/18 10:18 Normal Saline 0.9% IV Infused .Q10H JOLANTA Infusion Morphine Sulfate 2 mg 04/12/18 14:53 04/13/18 23:01 Morphine IVP 2 mg Q2HR PRN Administration PAIN Ondansetron HCl 4 mg 04/11/18 18:31 Zofran Inj IVP Q6HR PRN Nausea / Vomiting Oxycodone/Acetaminophen 1 tab 04/12/18 14:53 04/14/18 12:34 Percocet 5 Mg/325 Mg PO 1 tab Q4HR PRN Administration PAIN Polyethylene Glycol 17 gm 04/12/18 09:00 04/14/18 09:37 Miralax PO Not Given DAILY JOLANTA Prochlorperazine Edisylate 10 mg 04/12/18 14:53 Compazine Inj IVP Q6HR PRN Nausea / Vomiting Sertraline HCl 50 mg 04/12/18 11:00 04/14/18 09:53 Zoloft PO 50 mg DAILY JOLANTA Administration Sodium Chloride 10 ml 04/11/18 18:31 Normal Saline Flush 0.9% IVP PRN PRN NEEDED PER PROVIDER ORDERS Sodium Chloride 10 ml 04/12/18 01:00 04/14/18 09:53 Normal Saline Flush 0.9% IVP Not Given 0100,0900,1700 JOLANTA Zolpidem Tartrate 5 mg 04/11/18 18:31 04/12/18 00:35 Ambien PO 5 mg QPM PRN Administration Insomnia Ascorbic Acid [Vitamin C] 1,000 mg PO DAILY 04/10/18 Aspirin [Adult Low Dose Aspirin EC] 81 mg PO DAILY 04/13/18 Calcium Carbonate [[id number]] 750 mg PO BID 04/13/18 Hydroxyurea [Hydroxyurea] 500 mg PO DAILY 04/13/18 Sertraline HCl 100 mg PO DAILY 04/13/18 Objective - Vital Signs/Intake & Output Reviewed Vital Signs: Yes Vital Signs: Vital Signs x48h Temp Pulse Pulse Pulse Pulse Resp BP 04/14/18 11:58 36.8 C 91 16 04/14/18 11:11 92 92 87 140/49 H 04/14/18 07:58 36.8 C 98 1 L BP BP BP BP Pulse Ox 04/14/18 11:58 124/56 L 95 04/14/18 11:11 129/51 L 132/67 H 04/14/18 07:58 124/52 L 94 Intake & Output: Intake & Output 04/11/18 04/12/18 04/13/18 04/14/18 23:59 23:59 23:59 23:59 Intake Total 150 3430 3343.333 2074 Output Total 150 450 700 Balance 0 2980 2643.333 2074 - Objective General Appearance: positive: No acute distress (sitting up in chair, daughter in visiting, NAD, alert, awake) Eyes Bilateral: positive: Normal inspection, EOMI Respiratory: positive: Chest non-tender (decreased BS in bases , doesnt take very deep breath w/ request), No respiratory distress, Other (RA Sa02 w/ deep breath 91%) Cardiovascular: positive: Regular rate & rhythm Abdomen: positive: Nml bowel sounds, No distention. negative: Tenderness Skin: positive: Warm, Dry, Other (L hip dressing dry intact) Extremities: positive: No pedal edema ("large" legs, no edema, + varicosities/ spider veins) Neurologic/Psychiatric: positive: Oriented x3 (Hard of hearing) - Lab Results Fish Bones: 04/14/18 05:05 04/14/18 05:05 Other Labs: Lab Results x24hrs 04/14/18 04/14/18 04/13/18 Range/Units 05:05 05:05 17:54 WBC 9.1 (4.8-10.8) x10^3/uL RBC 2.40 L (4.20-5.40) 10^6/uL Hgb 7.5 L 8.9 L (12.0-16.0) g/dL Hct 22.6 L 27.1 L (37.0-47.0) % MCV 94.3 (81.0-99.0) fL MCH 31.2 H (27.0-31.0) pg MCHC 33.1 (32.0-36.0) g/dL RDW 27.1 H (12.0-15.0) % Plt Count 165 (130-450) 10^3/uL MPV 7.9 (7.9-10.8) fL Neut # (Auto) Not Reportable Lymph # (Auto) Not Reportable [place]rie # (Auto) Not Reportable Eos # (Auto) Not Reportable Baso # (Auto) Not Reportable Absolute Nucleated RBC Not Reportable Total Counted 100 Band Neuts % (Manual) 0 (0 - 10) % Abnorm Lymph % (Manual) 0 % Metamyelocytes % 1 H ( - 0) % Myelocytes % 1 H ( - 0) % Nucleated RBC % Not Reportable Neutrophils # (Manual) 5.5 (1.5-6.6) 10^3/uL Lymphocytes # (Manual) 1.5 (1.5-3.5) 10^3/uL Monocytes # (Manual) 1.9 H (0.0-1.0) 10^3/uL Eosinophils # (Manual) 0.0 (0-0.7) 10^3/uL Basophils # (Manual) 0.0 (0-0.1) 10^3/uL Differential Comment MANUAL DIFFERENTIAL Platelet Estimate NORMAL (130-450,000) (NORMAL) RBC Morph Micro Appear 1+ MICROCYTOSIS (NORMAL) Sodium 138 (135-145) mmol/L Potassium 3.5 (3.5-5.0) mmol/L Chloride 107 (101-111) mmol/L Carbon Dioxide 26 (21-32) mmol/L Anion Gap 5.0 L (6-13) BUN 13 (6-20) mg/dL Creatinine 0.4 (0.4-1.0) mg/dL Estimated GFR (MDRD) 151 (>89) Glucose 130 H (70-100) mg/dL Calcium 8.1 L (8.5-10.3) mg/dL Total Bilirubin 0.7 (0.2-1.0) mg/dL AST 18 (10-42) IU/L ALT 11 (10-60) IU/L Alkaline Phosphatase 43 (42-121) IU/L Total Protein 5.1 L (6.7-8.2) g/dL Albumin 2.6 L (3.2-5.5) g/dL Globulin 2.5 (2.1-4.2) g/dL Albumin/Globulin Ratio 1.0 (1.0-2.2) Assessment/Plan - Problem List (1) Hip fracture Impression: Day 2 post op for mechanical fall continues PT/OT, WBAT leftdoing well,not keen on [facility], but agrees to go to SNF VTE Prophylaxis Per Dr Barajas PLAN: To snf tomorrow or Tuesday. Mobilize as tolerated with PT- WBAT on left. Follow up in orthopedic clinic in 2 weeks for marcos out and XR. (2)acute blood loss anemia Per Op note, only 50 cc EBL Hgb 10.6 at admit (8.7 after hydration). 7.5 today got 1 u PRBC's Hct 32 at admit 26 /4. 22.6 today; given her small size and IVF at 100 cc/ hr, and no evident hematoma, hemodynamically stable this is most c/w dilution Due to low UOP reported overnight, did give small fluid bolus, but BUN, CR and BP unremarkable. Will d/c IVF and reeval narinder Iron studies done 04/12 Ferritin 280, Fe 41, TIBC low 186, % sat 22 (not cw SOUTH at this point (or adequatly treated SOUTH (is on fe at home; continue 3) Anxiety/ Conclusion/Plan: stable, continuehome Zoloft (4) Chronic back pain Conclusion/Plan: continue pain control pain control, on Morphine and Toradol, PRN Qualifiers: Encounter type: initial encounter Fracture type: closed Laterality: left Qualified Code(s): S72.002A - Fracture of unspecified part of neck of left femur, initial encounter for closed fracture
[2018-04-14] MEDS: ACETAMINOPHEN 325 MG TABLET PO PRN ×2 (16:26→21:22)
[2018-04-14] MEDS: oxyCODONE 5 MG TABLET PO PRN (21:22)
[2018-04-15 06:22] LABS: BASOPHILS % (AUTO) 0.2 %; EOSINOPHILS % (AUTO) 0.2 %; HGB - HEMOGLOBIN 7.8 g/dL (12.0-16.0); LYMPHOCYTES % (AUTO) 12.2 %; MEAN CORPUSCULAR HEMOGLOBIN 31.1 pg (27.0-31.0); MEAN CORPUSCULAR HGB CONC 32.8 g/dL (32.0-36.0); MEAN PLATELET VOLUME 7.8 fL (7.9-10.8); MONOCYTES % (AUTO) 29.5 %; NEUTROPHILS % (AUTO) 57.9 %; PLT - PLATELET COUNT 166 10^3/uL (130-450); RED BLOOD COUNT 2.49 10^6/uL (4.20-5.40); RED CELL DISTRIBUTION WIDTH 26.2 % (12.0-15.0)
[2018-04-15 06:25] LABS: ABNORMAL LYMPHS % (MANUAL) 0 %; BAND NEUTROPHILS % (MANUAL) 0 %
[2018-04-15 06:43] LABS: ALBUMIN 2.6 g/dL (3.2-5.5); BILIRUBIN,TOTAL 0.8 mg/dL (0.2-1.0); CALCIUM 8.4 mg/dL (8.5-10.3); CREATININE 0.5 mg/dL (0.4-1.0); TOTAL PROTEIN 5.1 g/dL (6.7-8.2)
[2018-04-15 06:52] LABS: LYMPHOCYTES # (MANUAL) 1.8 10^3/uL (1.5-3.5); LYMPHOCYTES % (MANUAL) 25 %; MONOCYTES # (MANUAL) 1.3 10^3/uL (0.0-1.0); NEUTROPHILS % (MANUAL) 57 %
[2018-04-15 06:53] LABS: DIFFERENTIAL COMMENT MANUAL DIFFERENTIAL; PLATELET ESTIMATE, MANUAL NORMAL (130-450,000) (NORMAL)
[2018-04-15 08:51] VITALS: BP 131/41
[2018-04-15] MEDS ORDERED: KETOROLAC 15 MG/ML VIAL IVP ONE (09:01)
--- NOTE | 2018-04-15 09:04 | PROVIDER PROGRESS NOTE ---
Subjective - Prog Note Date Prog Note Date: 04/15/18 Prog Note Time: 09:02 - Subjective Subjective: Opened in Error / see discharge summary Current Medications - Current Medications Current Medications: Active Medications Generic Name Dose Route Start Last Admin Trade Name Freq PRN Reason Stop Dose Admin Acetaminophen 650 - 975 mg 04/12/18 14:53 04/14/18 21:22 Tylenol PO 650 mg Q4HR PRN Administration PAIN Calcium Citrate 250 mg 04/13/18 09:00 04/14/18 09:36 PO 250 mg DAILY JOLANTA Administration Enoxaparin Sodium 40 mg 04/12/18 09:00 04/14/18 09:36 Lovenox SUBQ 40 mg DAILY JOLANTA Administration Ferrous Sulfate 325 mg 04/13/18 08:00 04/14/18 09:36 Feosol PO 325 mg DAILYWM JOLANTA Administration Ketorolac Tromethamine 15 mg 04/15/18 09:01 Toradol Inj (15mg) IVP 04/15/18 09:02 ONCE ONE Ondansetron HCl 4 mg 04/11/18 18:31 Zofran Inj IVP Q6HR PRN Nausea / Vomiting Oxycodone HCl 5 mg 04/14/18 13:13 04/14/18 21:22 Roxicodone PO 5 mg Q4HR PRN Administration PAIN Polyethylene Glycol 17 gm 04/12/18 09:00 04/14/18 09:37 Miralax PO Not Given DAILY [facility] Prochlorperazine Edisylate 10 mg 04/12/18 14:53 Compazine Inj IVP Q6HR PRN Nausea / Vomiting Sertraline HCl 50 mg 04/12/18 11:00 04/14/18 09:53 Zoloft PO 50 mg DAILY JOLANTA Administration Sodium Chloride 10 ml 04/11/18 18:31 Normal Saline Flush 0.9% IVP PRN PRN NEEDED PER PROVIDER ORDERS Sodium Chloride 10 ml 04/12/18 01:00 04/14/18 23:32 Normal Saline Flush 0.9% IVP Not Given 0100,0900,1700 [facility] Ascorbic Acid [Vitamin C] 1,000 mg PO DAILY 04/10/18 Aspirin [Adult Low Dose Aspirin EC] 81 mg PO DAILY 04/13/18 Calcium Carbonate [[id number]] 750 mg PO BID 04/13/18 Hydroxyurea [Hydroxyurea] 500 mg PO DAILY 04/13/18 Sertraline HCl 100 mg PO DAILY 04/13/18 Objective - Vital Signs/Intake & Output Vital Signs: Vital Signs x48h Temp Pulse Resp BP BP Pulse Ox 04/15/18 08:50 36.4 C L 99 18 131/41 H 95 04/15/18 04:40 36.8 C 93 18 133/41 H 96 Intake & Output: Intake & Output 04/12/18 04/13/18 04/14/18 04/15/18 23:59 23:59 23:59 23:59 Intake Total 3430 3343.333 2635 Output Total 450 700 Balance 2980 2643.333 2635 - Objective Abdomen: negative: Tenderness - Lab Results Fish Bones: 04/15/18 05:46 04/15/18 05:46 Other Labs: Lab Results x24hrs 04/15/18 04/15/18 Range/Units 05:46 05:46 WBC 7.0 (4.8-10.8) x10^3/uL RBC 2.49 L (4.20-5.40) 10^6/uL Hgb 7.8 L (12.0-16.0) g/dL Hct 23.7 L (37.0-47.0) % MCV 95.0 (81.0-99.0) fL MCH 31.1 H (27.0-31.0) pg MCHC 32.8 (32.0-36.0) g/dL RDW 26.2 H (12.0-15.0) % Plt Count 166 (130-450) 10^3/uL MPV 7.8 L (7.9-10.8) fL Neut # (Auto) Not Reportable Lymph # (Auto) Not Reportable [place] # (Auto) Not Reportable Eos # (Auto) Not Reportable Baso # (Auto) Not Reportable Absolute Nucleated RBC Not Reportable Total Counted 100 Band Neuts % (Manual) 0 (0 - 10) % Abnorm Lymph % (Manual) 0 % Nucleated RBC % Not Reportable Neutrophils # (Manual) 4.0 (1.5-6.6) 10^3/uL Lymphocytes # (Manual) 1.8 (1.5-3.5) 10^3/uL Monocytes # (Manual) 1.3 H (0.0-1.0) 10^3/uL Eosinophils # (Manual) 0.0 (0-0.7) 10^3/uL Basophils # (Manual) 0.0 (0-0.1) 10^3/uL Nucleated RBCs 2 % Differential Comment MANUAL DIFFERENTIAL Platelet Estimate NORMAL (130-450,000) (NORMAL) RBC Morph Micro Appear 1+ OVALOCYTES (NORMAL) Sodium 140 (135-145) mmol/L Potassium 3.4 L (3.5-5.0) mmol/L Chloride 108 (101-111) mmol/L Carbon Dioxide 29 (21-32) mmol/L Anion Gap 3.0 L (6-13) BUN 12 (6-20) mg/dL Creatinine 0.5 (0.4-1.0) mg/dL Estimated GFR (MDRD) 117 (>89) Glucose 118 H (70-100) mg/dL Calcium 8.4 L (8.5-10.3) mg/dL Total Bilirubin 0.8 (0.2-1.0) mg/dL AST 20 (10-42) IU/L ALT 14 (10-60) IU/L Alkaline Phosphatase 47 (42-121) IU/L Total Protein 5.1 L (6.7-8.2) g/dL Albumin 2.6 L (3.2-5.5) g/dL Globulin 2.5 (2.1-4.2) g/dL Albumin/Globulin Ratio 1.0 (1.0-2.2) Assessment/Plan - Problem List (1) Hip fracture Impression: opened in error; see discharge summary Qualifiers: Encounter type: initial encounter Fracture type: closed Laterality: left Qualified Code(s): S72.002A - Fracture of unspecified part of neck of left femur, initial encounter for closed fracture
[2018-04-15] MEDS: FERROUS SULFATE 325 MG TABLET PO SCH (09:30)
[2018-04-15] MEDS: SERTRALINE 50 MG TABLET PO SCH (09:30)
[2018-04-15] MEDS: CALCIUM CITRATE 250 MG TABLET PO SCH (09:30)
[2018-04-15] MEDS: POLYETHYLENE GLYCOL 3350 17 GM PACKET PO SCH (09:30)
[2018-04-15] MEDS: ENOXAPARIN 40 MG/0.4 ML SYRINGE SUBQ SCH (09:30)
[2018-04-15] MEDS: SODIUM CHLORIDE FLUSH 0.9% 10 ML SYRINGE IVP SCH (09:31)
[2018-04-15] MEDS: oxyCODONE 5 MG TABLET PO PRN (09:44)
[2018-04-15] MEDS: ACETAMINOPHEN 325 MG TABLET PO PRN (10:54)
--- NOTE | 2018-04-15 12:36 | Discharge Plan ---
"Discharge Plan for SNF / [facility] - DC Plan and Transition Orders Disposition: SNF DC/Xfer Condition: Stable SNF Transition Orders: Admit to: [[facility]] under the care of [Macie SHERMAN or [facility] provider] Discharge Diagnosis: [1) Left intertrochangeric fracture (comminuted angulated complete) s/p mechanichal fall 2) Day 3 s/p Closed reduction, short Intertan nailing of left hip fracture ( surgery 04/12/18) EBL 50cc 3) Anxiety 4) Chronic back pain; 5) acute blood loss anemia: stable post 1 unit PRBC's 04/13/18 Hgb/Hct 04/15 7.8 / 23.7 (this is largely dilutional as well) 6) Hx of ITP, sp Hydroxyurea (no longer on as of this week per Dr. Norris) 6) Code status ; Full code] Medicare Certification: I certify that [facility] senior care care is medically necessary on a continuing basis for any of the conditions for which she/he is receiving care during hospitalization. Notify PCP of admission and forward orders to primary provider for signature. Weight on admission and [Weekly]. House Bowel Program: [Yes] If no BM after 2 days, nurse may give M.O.M. 30ml PO PRN and /or ducolax Supp 1 UT and /or ANT 250mg P.O., and/or senna 1-2 tabs PO. On day 3 nurse may give repeat above order until residents constipation is resolved. Immunizations: Annual Influenza Vaccine: [Yes]. (between Jun 10 and January 07.) Unless allergy or already given Two-Step PPD: [Yes] per [facility] 248-235 or appropriate documentation of approved exceptions Treatments & Other Orders: [Physical Therapy/ OT for weight , balance training, WBAT on left per orthopedic surgeon ] Oxygen Orders: [none needed] Lab Tests or X-Rays Orders: [Xray L hip with ortho follow up in 2 wks] Orthopedic Orders: [ Follow up in orthopedic clinic in 2 wks (week of 05/01 or late the prior week for staple removal and Hip Xray) ]. Medications: Allergies: NKDA PLEASE REFER TO THE DISCHARGE MEDICATION LIST. Insulin Orders? No] Diagnosis: NOT DIABETIC NO INSULIN ORDERS Initiate hypo and hyperglycemia protocols for BG <70 and BG >375. May check BG prn for signs/symptoms of dysglycemia. Frequency of BG checks: [AC/Meal/HS] Basal Insulin: n/a [] Lantus 100 units / ml inject subq as follows: [] [] Other: [] Correction Insulin: - Select the type of insulin below [Choose: Novolog/Humalog]100 units /ml insulin inject subq per orders indicate below [] LOW DOSE [] MODERATE DOSE [] MODERATE/HIGH DOSE [] HIGH DOSE GB UNITS GB UNITS GB UNITS GB UNITS 61-140 0 UNITS 61-140 0 UNITS 61-140 0 UNITS 61-140 0 UNITS 141-175 1 UNITS 141-175 1 UNITS 141-175 2 UNITS 141-175 3 UNITS 176-225 2 UNITS 176-225 3 UNITS 176-225 4 UNITS 176-225 5 UNITS 226-275 3 UNITS 226-275 5 UNITS 226-275 6 UNITS 226-275 7 UNITS 276-325 4 UNITS 276-325 7 UNITS 276-325 8 UNITS 276-325 9 UNITS 326-375 5 UNITS 326-375 9 UNITS 326-375 10 UNITS 326-375 11 UNITS >375 CONTACT MD >375 CONTACT MD >375 CONTACT MD >375 CONTACT MD Custom Dosing: [Choose: None/Novolog/Humalog] 100 units/ml Insulin inject subq as follows: GB Units 61-140 [] Units 141-175 [] Units 176-225 [] Units 226-275 [] Units 276-325 []Units 326-375 [] Units >375 Contact MD Allergies and Adverse Reactions: Allergies Allergy/AdvReac Type Severity Reaction Status Date / Time No Known Drug Allergies Allergy Verified 02/18/14 18:41 - Medications New Prescriptions: oxyCODONE [Roxicodone] 5 mg PO Q4HR PRN #10 tablet PRN Reason: Pain Acetaminophen [Tylenol] 650 mg PO Q6H PRN #30 tablet PRN Reason: PRN PAIN &/OR FEVER Aspirin EC [Ecotrin] 325 mg PO BID #30 tablet - Diet Texture: Regular Liquids: Thin - Therapies | Activity Therapy: Evaluation | Treat if indicated: PT, OT Rehabilitation Potential: Maximize functional status, Return to independent living Activity: Wt Bearing as Tolerated Weight Bearing: WBAT L lower extremity Assistance Devices: Walker"
--- NOTE | 2018-04-15 14:18 | DISCHARGE SUMMARY ---
"Discharge Summary Admit Date: 04/11/18 Discharge Date: 04/15/18 Discharging Provider: Alexandra Mata Primary Care Provider: Macie Lopez Code Status: Attempt Resuscitation Condition at Discharge: Stable Discharge Disposition: SNF DC/Xfer Discharge Facility Name: [facility] - DIAGNOSES Admission Diagnoses: 1) Left Intertrochanteric Hip fracture S/P ; mechanical fall 2) Day 3 s/p Closed reduction/ short Intertan nailing L hip fracture 3) Acute blood loss anemia 4) Anxiety on zoloft 5) Chronic back pain Discharge Diagnoses with Status of Each Condition: 1) Left Intertrochanteric Hip fracture S/P ; mechanical fall Patient is an 87 yo female who missed a step when walking in her garage. she fell and sustained a L IT hip fracture. She was evaluated by Dr. Barajas who performed a Left IT nailing on 04/12. EBL 50cc. Unremarkable introperative and perioperative course. Progressed well with PT who advised SNF especially for bed mobility. D/C'd to [facility] on 04/15/[address] Barajas; 2 weeks ASA 325 mg for VTE prophylaxis WBAT on LLE per Dr. Barajas 2) Acute blood loss anemia Admission H/H 10.6/32 (with hydration before surgery 8.3/ 26 so she may have been sl dry on presentation. With reported EBL 50cc, 7.4/22.9 on Day 1 post op . Hemodynamically stable, but did receive 1 u PRB's 04/13. On discharge Hgb/Hct 7.8 23.7 which most likley reflects significant dilution as well in this petite 87 yo. (No evident bleeding, asymptomatic and hemodynamically stable. consider recheck H/H ~ 1 wk. Expect with fluid reequilibration over several days her Hgb/hct will be improved. 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 Of hyroxyurea as of March due to She is no longer on hydroxyurea She is on Full dose ASA as above for VTE prophylaxis x 2 weeks, THEN should resume her ASA 81 mg daily for thrombosis prevention due to her platelet pathology and is documented as such in her Rx instructions for SNF (ongoing f/u w/ Dr. Norris 4) Anxiety ; stable, continues zoloft - HPI History of Present Illness: See HPI on H/P 87 yo female had a misstep walking into garage and fall onto her hip w acute pain. Came to ED and Found to have a L IT hip fracture. This was a mechanical fall. Dr Barajas consulted and recommended repair. As above, uneventful repair on 04/12. - CONSULTS | PROCEDURES Consultations: Logan Barajas orthopedics Procedures: April 12 2018 Closed reduction, short Intertan nailing left hip fracture - HOSPITAL COURSE Hospital Course: see above - ALLERGIES Allergies/Adverse Reactions: Allergies Allergy/AdvReac Type Severity Reaction Status Date / Time No Known Drug Allergies Allergy Verified 02/18/14 18:41 - MEDICATIONS Home Medications: Ambulatory Orders Medication Instructions Recorded Confirmed Ascorbic Acid [Vitamin C] 1,000 mg PO DAILY 04/10/18 04/13/18 Calcium Carbonate [[id number]] 750 mg PO BID 04/13/18 04/13/18 Sertraline HCl 100 mg PO DAILY 04/13/18 04/13/18 Acetaminophen [Tylenol] 650 - 975 mg PO Q4HR PRN tablet 04/15/18 Acetaminophen [Tylenol] 650 mg PO Q6H PRN #30 tablet 04/15/18 Aspirin EC [Ecotrin] 325 mg PO BID #30 tablet 04/15/18 Aspirin [Adult Low Dose Aspirin EC] 81 mg PO DAILY #0 04/15/18 04/13/18 oxyCODONE [Roxicodone] 5 mg PO Q4HR PRN #10 tablet 04/15/18 - PHYSICAL EXAM AT DISCHARGE General Appearance: positive: No acute distress (seen in bed this morning, feels well) Eyes Bilateral: positive: EOMI Respiratory: positive: No respiratory distress, Breath sounds nml. negative: Wheezes, Rales, Rhonchi Cardiovascular: positive: Regular rate & rhythm, No murmur Abdomen: positive: Nml bowel sounds, No distention. negative: Tenderness Skin: positive: Warm, Dry Extremities: positive: Other (Left hip dressing dry, intact, no hematoma, bilateral pedal pulses 2+). negative: Pedal edema Neurologic/Psychiatric: positive: Oriented x3 - LABS Result Diagrams: 04/15/18 05:46 04/15/18 05:46 - FOLLOW UP Follow Up: Follow up in orthopedic clinic in 2 wks for staple removal and Xray hip"
== END 2018-04-15 15:40 | DRG 481 ==
LOC: EDUNIT# → ED 15:25 → MS2 18:31
PROVIDERS: ADMIT Nurse Practitioner Gerontology; ATTEND Nurse Practitioner
PROC: 0QS736Z Reposition Left Upper Femur with Intramedullary Internal Fixation Device, Percutaneous Approach (ICD-10-PCS; principal; 2018-04-12 12:00)
PROC: 30233N1 Transfusion of Nonautologous Red Blood Cells into Peripheral Vein, Percutaneous Approach (ICD-10-PCS; 2018-04-13)
DX: S72.142A Displaced intertrochanteric fracture of left femur, initial encounter for closed fracture (principal); D62 Acute posthemorrhagic anemia; Y92.009 Unspecified place in unspecified non-institutional (private) residence as the place of occurrence of the external cause; F03.90 Unspecified dementia, unspecified severity, without behavioral disturbance, psychotic disturbance, mood disturbance, and anxiety; F41.9 Anxiety disorder, unspecified; G89.29 Other chronic pain; M54.9 Dorsalgia, unspecified; R40.2412 Glasgow coma scale score 13-15, at arrival to emergency department; W01.0XXA Fall on same level from slipping, tripping and stumbling without subsequent striking against object, initial encounter; Y92.008 Other place in unspecified non-institutional (private) residence as the place of occurrence of the external cause; Z79.1 Long term (current) use of non-steroidal anti-inflammatories (NSAID); Z86.79 Personal history of other diseases of the circulatory system
CPT/HCPCS: 36415; 80053; 81001; 82607; 82728; 83540; 83615; 83690; 83735; 84466; 85014; 85018; 85025; 85044; 85610; 86850; 86900; 86901; 86920; 87086; 93005; 99283; 99284

== ENCOUNTER 2018-04-25 08:00 | Outpatient (CLI) | payer MEDICARE, OTHER ==
[2018-04-25 16:51] LABS: BASOPHILS % (AUTO) 0.2 %; EOSINOPHILS % (AUTO) 0.1 %; HGB - HEMOGLOBIN 9.4 g/dL (12.0-16.0); LYMPHOCYTES % (AUTO) 12.3 %; MEAN CORPUSCULAR HEMOGLOBIN 32.5 pg (27.0-31.0); MEAN CORPUSCULAR HGB CONC 32.6 g/dL (32.0-36.0); MEAN CORPUSCULAR VOLUME 99.7 fL (81.0-99.0); MEAN PLATELET VOLUME 8.1 fL (7.9-10.8); MONOCYTES % (AUTO) 24.6 %; NEUTROPHILS % (AUTO) 62.8 %; PLT - PLATELET COUNT 306 10^3/uL (130-450); RED BLOOD COUNT 2.89 10^6/uL (4.20-5.40); RED CELL DISTRIBUTION WIDTH 28.3 % (12.0-15.0); WHITE BLOOD COUNT 10.6 x10^3/uL (4.8-10.8)
[2018-04-25 16:55] LABS: ABNORMAL LYMPHS % (MANUAL) 0 %
[2018-04-25 17:31] LABS: CALCIUM 9.1 mg/dL (8.5-10.3); CREATININE 0.7 mg/dL (0.4-1.0)
[2018-04-25 17:45] LABS: BAND NEUTROPHILS % (MANUAL) 1 %; LYMPHOCYTES # (MANUAL) 1.2 10^3/uL (1.5-3.5); LYMPHOCYTES % (MANUAL) 11 %; MONOCYTES # (MANUAL) 1.2 10^3/uL (0.0-1.0); MYELOCYTES % (MANUAL) 1 %; NEUTROPHILS # (MANUAL) 8.2 10^3/uL (1.5-6.6); NEUTROPHILS % (MANUAL) 76 %
[2018-04-25 17:46] LABS: PLATELET ESTIMATE, MANUAL NORMAL (130-450,000) (NORMAL)
== END 2018-04-25 08:01 | disposition home or self-care (01) ==
LOC: LAB.R 08:00
DX: D62 Acute posthemorrhagic anemia (principal); E87.6 Hypokalemia
CPT/HCPCS: 80048; 85025

== ENCOUNTER 2018-07-24 08:00 | Outpatient (CLI) | payer MEDICARE, OTHER | END 2018-07-24 08:01 | disposition home or self-care (01) | LOC: LAB.R 08:00 | PROVIDERS: ATTEND Family Medicine | DX: C92.00 Acute myeloblastic leukemia, not having achieved remission (principal) ==

== ENCOUNTER 2018-07-26 10:00 | Outpatient (CLI) | payer MEDICARE, OTHER ==
[2018-07-26 11:54] LABS: EOSINOPHILS # (AUTO) 0.4 10^3/uL (0.0-0.7); EOSINOPHILS % (AUTO) 2.4 %; LYMPHOCYTES # (AUTO) 7.2 10^3/uL (1.5-3.5); LYMPHOCYTES % (AUTO) 43.6 %; MEAN CORPUSCULAR HEMOGLOBIN 33.8 pg (27.0-31.0); MEAN CORPUSCULAR HGB CONC 33.8 g/dL (32.0-36.0); MONOCYTES # (AUTO) 3.6 10^3/uL (0.0-1.0); MONOCYTES % (AUTO) 21.9 %; NEUTROPHILS # (AUTO) 5.3 10^3/uL (1.5-6.6); NEUTROPHILS % (AUTO) 32.1 %; PLT - PLATELET COUNT 135 10^3/uL (130-450); RED BLOOD COUNT 3.27 10^6/uL (4.20-5.40); RED CELL DISTRIBUTION WIDTH 20.8 % (12.0-15.0); WHITE BLOOD COUNT 16.5 x10^3/uL (4.8-10.8)
== END 2018-07-26 10:01 | disposition home or self-care (01) ==
LOC: LAB.R 10:00
PROVIDERS: ATTEND Family Medicine
DX: C92.00 Acute myeloblastic leukemia, not having achieved remission (principal)
CPT/HCPCS: 85025